=== PATIENT | female | born 2000 | race Caucasian/White ===

== ENCOUNTER 2020-02-13 15:03 | Inpatient (IN) | payer MEDICAID, SELFPAY ==
[2020-02-13] VITALS (7 sets, daily range): BP systolic 110–150; BP diastolic 61–97; PULSE 80–115; RESP 16–19; TEMP 36.2–36.9; O2SAT 99–100; BMI 37.7
--- NOTE | ~2020-02-13 | US_ITS ---
EXAMINATION: US right upper quadrant DATE: 02/19/2020 09:54 INDICATION: Abdominal pain. TECHNIQUE: Multiple grayscale and Doppler ultrasound images of the abdomen were obtained. COMPARISON: Ultrasound 02/13/2020, MRCP 02/14/2020 FINDINGS: The pancreas is obscured by bowel gas. The liver is normal without focal lesion. There is n ormal flow in main portal vein. The gallbladder is absent. The common duct is normal and measures 5 m m. IMPRESSION: 1. Normal right upper quadrant ultrasound status post cholecystectomy. Reviewed, dictated and finalized at location A.
--- NOTE | ~2020-02-13 | XR_ITS ---
EXAMINATION: XR ERCP DATE: 02/22/2020 10:36 INDICATION: Biliary stent placement TECHNIQUE: 15 intraoperative fluoroscopic images obtained during endoscopic retrograde cholangiopancr eatography (ERCP) are submitted for review. Total fluoroscopic time was 41.8 seconds. COMPARISON: 02/15/2020 FINDINGS: Fluoroscopic images demonstrate retrograde opacification of a normal caliber common bile du ct. Cholecystectomy clips are noted. A stent is seen in the distal bile duct in the final image. IMPRESSION: 1. Common bile duct stent insertion. Please refer to the ERCP procedure note for additional details. Reviewed, dictated and finalized at location A. IMPRESSION: 1. Common bile duct stent insertion. Please refer to the ERCP procedure note fo r additional details.
--- NOTE | ~2020-02-13 | MR_ITS ---
EXAMINATION: MR MRCP wo/w con/w 3D wo ind DATE: 02/14/2020 09:00 INDICATION: Jaundice TECHNIQUE: Magnetic resonance imaging (MRI) of the abdomen was performed without and with 20 mL Multi brian intravenous contrast. Sequences included coronal T2-weighted SS-FSE, coronal T2-weighted FS SS- FSE, coronal T2-weighted FS FIESTA, axial T2-weighted FS FIESTA, axial T2-weighted FIESTA, sagittal T 2-weighted SS-FSE, axial T1-weighted dual-echo FSPGR, axial T2-weighted SS-FSE, axial T1-weighted LAV A, axial T2-weighted STIR FSE. Thick-slab T2-weighted FRFSE-XL images were obtained for magnetic reso nance cholangiopancreatography (MRCP). Rotating maximum intensity projection 3-D reconstructions of t he volumetric data were created by the technologist. Postcontrast sequences included a time course of axial T1-weighted LAVA. COMPARISON: Ultrasound dated 02/13/2020 FINDINGS: ABDOMEN MRI: Heart size is normal. No pericardial or pleural effusion. Moderate diffuse intrahepatic biliary ducta l dilation. Liver is otherwise unremarkable. 11 mm gallstone in the dependent neck of the bladder whi ch is dilated to 5.2 cm. There is an additional 3 mm lower density gallstone at the nondependent fund us. No significant gallbladder wall thickening or surrounding pericholecystic inflammatory stranding to suggest acute cholecystitis. Spleen, pancreas, bilateral adrenal glands and kidneys are normal. Vi sualized portions of the bowels are unremarkable. No pathologically enlarged abdominal lymphadenopath y. The visualized vasculature and bones are unremarkable. ABDOMEN MRCP: The common bile duct is dilated to 12 mm in maximal diameter tapering to 5 mm the distal common bile duct where there is a meniscus sign with low signal intensity 5 x 6 mm likely obstructing stone at th e ampulla. Pancreas divisum with normal caliber main pancreatic duct extending to the minor papilla. IMPRESSION: 1. Cholelithiasis and obstructing 5 x 6 mm gallstone at the distal common bile duct with secondary in tra and extra hepatic biliary ductal dilation. 2. Incidental pancreas divisum. Pancreas is otherwise normal. Reviewed, dictated and finalized at location A. IMPRESSION: 1. Cholelithiasis and obstructing 5 x 6 mm gallstone at the distal common bile duct with secondary intra and extra hepatic biliary ductal dilation. 2. Incidental pancreas divisum. Pancreas is otherwise normal.
--- NOTE | ~2020-02-13 | US_ITS ---
EXAMINATION: US right upper quadrant EXAM DATE: 02/13/2020 16:13 INDICATION: Jaundice. TECHNIQUE: Multiple grayscale and Doppler images of the abdomen right upper quadrant were obtained (rain y a technologist who performed the scan) and subsequently reviewed. There is no prior study for luis boateng. FINDINGS: Bowel gas obscures the pancreas which is not seen. The liver has normal echogenicity and contour. T here are no focal liver lesions identified. Portal venous flow was seen in the hepatopedal, normal direction and has normal Doppler waveform. No right-sided hydronephrosis. Common bile duct measures 7-8 mm, which is mildly dilated. There is a gallstone in the dependent aspe ct of the gallbladder, the gallbladder neck. Gallbladder is moderately distended, wall is mildly thic kened at 3-4 mm. No pericholecystic fluid. Possible mild intrahepatic biliary duct dilation. Technol ogist performing exam reports patient did not demonstrate sonographic Mcintosh's sign. Please note yelitza t this sign is less reliable in patients who have received pain medication. No acute symptoms of abd ominal pain was provided for. IMPRESSION: Cholelithiasis, moderately distended gallbladder and mildly dilated common bile duct. Can 't exclude obstructing choledocholithiasis, although no sonographic Mcintosh's sign was demonstrated. MRCP can be considered if indicated clinically. Reviewed, dictated and finalized at location A. IMPRESSION: Cholelithiasis, moderately distended gallbladder and mildly dilated common bile duct. Can't exclude obstructing choledocholithiasis, although no s onographic Mcintosh's sign was demonstrated. MRCP can be considered if indicate d clinically.
--- NOTE | ~2020-02-13 | XR_ITS ---
XR ERCP 02/15/2020 12:04 ERCP TECHNIQUE: Fluoroscopy used during ERCP procedure performed on 02/15/2020 The amount of fluoroscopy ti me used during this procedure was 48 seconds of fluoroscopy with 4 fluoroscopic images images capture d. FINDINGS: Correlate with procedure note. Contrast is noted in the common duct which is partially vis ualized. IMPRESSION: Fluoroscopy used during ERCP procedure. Limited fluoroscopic images demonstrate contrast in the common duct. Please refer to procedural report for details. Reviewed, dictated and finalized at location A.
--- NOTE | ~2020-02-13 | CT_ITS ---
EXAMINATION: CT abdomen pelvis w con EXAM DATE: 02/20/2020 15:05 INDICATION: Diffuse abdominal pain. TECHNIQUE: Spiral CT of the abdomen and pelvis was performed following intravenous injection of 100 m L Omnipaque 350. Axial, coronal and sagittal images were reviewed. The dose-length product (DLP) fo r this examination was 1120.91 mGy-cm. The exposure was tailored according to patient size (auto mA exposure control), and iterative reconstruction (ASIR) was used as additional dose reduction techniqu e. Correlation is made to prior ultrasound. FINDINGS: There is edema within the right abdominal musculature, and there are tiny foci of free intr aperitoneal gas, likely postoperative from recent cholecystectomy. There is small amount of ascites, no contained pocket of fluid in the gallbladder fossa. If bile leak is of clinical concern, consider HIDA scan. The liver, spleen, adrenal glands and pancreas are unremarkable. Portal and splenic veins are patent. Kidneys enhance symmetrically. There is no hydronephrosis. The uterus is unremarkabl e. The bladder is unremarkable. There is no retroperitoneal or pelvic lymphadenopathy. The appendix is normal. The stomach and small bowel are unremarkable. There is expected amount of c olonic stool. No free intraperitoneal gas. The heart is normal in size. There are no pericardial or pleural effusions. There is basilar airspace disease with volume loss, elevation of the right he midiaphragm, mostly linear appearance, most likely atelectasis given the homogeneous enhancement. Con machine setter automatic incentive spirometry. There are no osteoblastic or osteolytic lesions identified. IMPRESSION: 1. Postoperative changes from recent cholecystectomy. 2. Small amount of ascites without fluid in the gallbladder fossa. If there is rising bilirubin, cli nical suspicion of bile leak, a HIDA scan would be appropriate. 3. Subsegmental right basilar, subsegmental left basilar atelectasis; consider incentive spirometry. Reviewed, dictated and finalized at location A. IMPRESSION: 1. Postoperative changes from recent cholecystectomy. 2. Small amount of ascites without fluid in the gallbladder fossa. If there is rising bilirubin, clinical suspicion of bile leak, a HIDA scan would be approp riate. 3. Subsegmental right basilar, subsegmental left basilar atelectasis; consider incentive spirometry.
--- NOTE | ~2020-02-13 | NM_ITS ---
EXAMINATION: NM hepatobiliary wo pharm DATE: 02/21/2020 10:29 INDICATION: Abdominal pain status post cholecystectomy. COMPARISON: CT abdomen and pelvis 02/20/2020 TECHNIQUE: 5 mCi Tc-99m mebrofenin (Choletec) was administered intravenously. Scintigraphic images o f the abdomen were obtained for one hour. FINDINGS: There is normal clearance of radiotracer from the blood pool. There is homogeneous tracer u ptake by the liver. There is pooling of activity at the undersurface of the liver, consistent with bi le leak. IMPRESSION: 1. Bile leak. Reviewed, dictated and finalized at location A. IMPRESSION: 1. Bile leak.
[2020-02-13 15:44] LABS: Basophils Absolute Auto 0.1 K/mm3 (0.0-0.1); Basophils Percent Auto 0.8 % (0.2-1.2); Eosinophils Absolute Auto 0.2 K/mm3 (0-0.3); Eosinophils Percent Auto 1.7 % (0-4.4); Hematocrit 47.2 % (37.0-47.0); Hemoglobin 15.1 g/dL (12.0-15.0); Immature Granulocyte Absolute 0.03 K/mm3 (0.00-0.031); Immature Granulocyte Percent A 0.3 % (0-0.5); Lymphocytes Absolute Auto 1.78 K/mm3 (0.9-3.2); Lymphocytes Percent Auto 20.1 % (18.3-44.2); Mean Corpuscular Hemoglobin 28.9 pg (26-34); Mean Corpuscular Volume 90.4 fl (80-100); Mean Platelet Volume 10.4 fl (7.4-10.4); Monocytes Percent Auto 11.2 % (2.6-8.5); Neutrophils Absolute Auto 5.8 K/mm3 (1.3-6.7); Neutrophils Percent Auto 65.9 % (45.5-73.1); Platelet Count Result 368 k/mm3 (150-375); Red Blood Count 5.22 M/mm3 (4.2-5.4); Red Cell Distribution Width 14.2 % (11.5-14.5); White Blood Count 8.8 K/mm3 (4.5-10.0)
[2020-02-13 15:54] LABS: Partial Thromboplastin Time 27.2 SECONDS (22.3-36.8); Prothrombin Time 12.5 Seconds (11.1-14.7)
[2020-02-13 15:56] LABS: Albumin Level 4.8 g/dL (3.5-5.1); Alkaline Phosphatase 254 U/L (38-126); Aspartate Amino Transferase 336 U/L (14-36); Bilirubin Direct 4.4 mg/dL (0-0.3); Bilirubin,Total 9.6 mg/dL (0.2-1.3); Blood Urea Nitrogen 9 mg/dL (7-17); Calcium 10.4 mg/dL (8.4-10.2); Carbon Dioxide 30 mmol/L (22-30); Chloride 99 mmol/L (98-107); Estimated Glomerular Filt Rate > 60; Glucose 131 mg/dL (65-105); Potassium 3.3 mmol/L (3.4-5.0); Sodium 139 mmol/L (137-145)
[2020-02-13 15:56] LABS: Ammonia < 9 umol/L (9-30)
[2020-02-13 16:02] LABS: Add Urine Microscopic? YES; Appearance Urine Clear (Clear); Bacteria Urine Trace /hpf; Bilirubin Urine 2+ (Negative); Blood Urine Negative (Negative); Color Urine Amber (Yellow); Glucose Urine UA Negative (Negative); Ketones Urine Negative (Negative); Leukocyte Esterase Ur Negative LEU/UL (Negative); Nitrate Urine Negative (Negative); Protein Urine Negative (Negative); RBC Urine 0-2 /hpf (0-2); Specific Grav Ur 1.011 (1.001-1.035); Squamous Epithelial Cell Urine Rare /hpf (Few); WBC Urine 0-3 /hpf
[2020-02-13 16:03] LABS: Alanine Aminotransferase 695 U/L (4-35); Monoscreen Negative (Negative)
[2020-02-13 16:04] LABS: Negative Monotest Control Negative (Negative); Positive Monotest Control Positive (Positive)
[2020-02-13 16:26] LABS: Hepatitis B Surface Antigen Negative (Negative)
[2020-02-13 16:35] LABS: HAV RESULT Negative (Negative); Hepatitis B Core IgM Result Negative (Negative)
[2020-02-13 16:44] LABS: Hepatitis C Virus Antibody Negative (Negative)
--- NOTE | 2020-02-13 16:54 | ED.GENADULT ---
HPI - General Adult General Chief complaint: Unspecified Stated complaint: yellow skin/vomiting Time Seen by Provider: 02/13/20 15:08 History of Present Illness HPI narrative: Patient is a 19-year-old female who presents the ER with jaundice. Patient reports for the last 3 weeks she has developed pain in her lower thoracic back. Is been associated with nausea. She cannot report any aggravating or alleviating factors. She is tried going to the chiropractor. Over last 3 days she start become more yellow and opted to come to the ER for further evaluation. Patient has no history of receiving any vaccinations. She does not drink alcohol. Denies IV drug use or possible exposure to hepatitis through sexual activity. No blood transfusions. She denies fever/chills/sweats. No family history of liver disease. Patient is obese. Denies any easy bruising or bleeding. Related Data Home Medications Medication Instructions Recorded Confirmed No Home Medications 02/13/20 02/13/20 Allergies Allergy/AdvReac Type Severity Reaction Status Date / Time No Known Allergies Allergy Verified 02/13/20 15:18 Review of Systems Review of Systems: All systems reviewed & are unremarkable except as noted in HPI and below Constitutional: Constitutional: Denies chills, Denies fever(s) and Denies weakness ENT: Denies nasal congestion and Denies sore throat Cardiovascular: Cardiovascular: Denies chest pain and Denies radiating jaw, neck or arm pain Respiratory: Respiratory: Denies cough, Denies dyspnea and Denies wheezing Gastrointestinal: Gastrointestinal: Denies abdominal pain, Denies constipation and Reports nausea Genitourinary: Genitourinary: Denies hematuria, Denies nocturia and Denies dysuria Musculoskeletal: Musculoskeletal: Reports back pain, Denies arthralgias and Denies joint swelling Integumentary/Breasts: Skin/Breast: Reports jaundice Hematologic/Lymphatic: Hematologic/Lymphatic: Denies easy bleeding and Denies easy bruising PMFSH Past Medical History Medical History (Updated 02/13/20 @ 18:04 by Alcides Koenig MD) No significant past medical history Surgical History Surgical History (Updated 02/13/20 @ 16:57 by Alcides Koenig MD) No significant past surgical history Social History Social History (Updated 02/13/20 @ 16:57 by Alcides Koenig MD) Smoking status: Never smoker Alcohol intake: never Substance use: never Gender identity (if verbalized by the patient): Female Exam Narrative: Exam Narrative: GENERAL: Unwell appearing, obese, and in no acute distress. HEAD: Normocephalic, atraumatic. EYES: PERRL and EOMI. scleral icterus noted. ENT: Mucous membranes moist. CHEST: Clear to auscultation. No respiratory distress. HEART: Regular rate and rhythm. Normal peripheral pulses. ABDOMEN: Soft, nontender, nondistended, normal active bowel sounds. Back: No midline tenderness of thoracic or lumbar spine. EXTREMITIES: Normal range of motion. No edema. SKIN: Warm, dry, jaundice, no bruising or petechiae.. NEURO: No focal deficits. Alert and oriented x3. Course Course Emergency Course: Patient informed of results. Will admit to hospitalist service for MRCP. Vital Signs Vital signs: Vital Signs Temperature 98.2 F 02/13/20 15:09 Pulse Rate 104 H 02/13/20 15:09 Respiratory Rate 18 02/13/20 15:09 Blood Pressure 150/97 H 02/13/20 15:09 Pulse Oximetry 100 02/13/20 15:09 Temperature 97.1 F L 02/13/20 17:56 Pulse Rate 100 02/13/20 17:56 Respiratory Rate 16 02/13/20 17:56 Blood Pressure 128/83 02/13/20 17:56 Pulse Oximetry 100 02/13/20 17:56 Medical Decision Making Vital Signs Vital Signs: Vital Signs Temperature 98.2 F 02/13/20 15:09 Pulse Rate 104 H 02/13/20 15:09 Respiratory Rate 18 02/13/20 15:09 Blood Pressure 150/97 H 02/13/20 15:09 Pulse Oximetry 100 02/13/20 15:09 Temperature 97.1 F L 02/13/20 17:56 Pulse Rate 100 05/0
--- NOTE | 2020-02-13 18:53 | PC.NURSE ---
This patient, Cleopatra Castaneda, was admitted to 3 [facility] Surg Room 302-01. Patient/family oriented to hospital policies and general routines including ID bracelet, bed and alarms, visiting hours, pain management, procedures, bathroom and other care routines, personal items, smoking policy, room service/diet, and visiting hours. Valuables list has been completed. Information on how to activate the Rapid Response Team has been discussed. Patient/Family are encouraged to report perceived risks to care and to ask questions if they do not understand what they are told or what they should do.
[2020-02-13] MEDS: SODIUM CHLORIDE 0.9% IV 1,000 ML 125 ML IV CONT (19:02)
[2020-02-14] MEDS: SODIUM CHLORIDE 0.9% IV 1,000 ML 125 ML IV CONT (03:08)
--- NOTE | 2020-02-14 05:30 | PM.IMHP ---
H&P: HPI History of Present Illness Chief complaint: Jaundice Narrative: Date and time of patient contact: 02/14/2020 at 5:30 a.m. Cleopatra Castaneda is a 19 year old female with a past medical history of anemia and obesity who presented to the ER with jaundice. The patient's mother noticed the patient was jaundice about 3 days ago. She gave the patient a hemolex multi vitamin and vitamin-D and she thought the patient's jaundice had improved. The jaundice was preceded by about 3 weeks of mid thoracic back pain and occasional right upper quadrant pain that was at times severe in intensity (10/10). Pain was intermittent and frequency. Pain was associated by the onset of nausea and vomiting as well as decreased oral intake. She did not notice any eliciting or relieving factors. She did try to go to the chiropractor without improvement in her symptoms. She has had a decreased number bowel movements but associates this with decreased oral intake. Her bowel movements have been in room dining server in color recently. Her urine has been darker in color. She denies any dysuria or changes in his in urinary frequency or urgency. She does not drink alcohol, use illicit sub and has not had any exposures to hepatitis. She denies any fevers or chills. She is not sexually active and has not had any travel. She has not received any vaccines. She has been taking some ibuprofen for the back pain without relief in her symptoms. She thought that the ibuprofen may have caused the jaundice. She does not a family history of liver disease. She has not had any easy bruising or bleeding. Review of Systems Review of Systems: Narrative: 12 systems were reviewed with pertinent positives and negatives per HPI. Except as documented in the HPI, all other systems were reviewed and are negative. [facility] Past Medical History Medical History Anemia Obesity Surgical History Surgical History No significant past surgical history Family History Family History Mother Diabetes mellitus Father Hypertension Shortness of breath Social History Social History Social History: Code code status: Full code Smoking status: Never smoker Alcohol intake: never Substance use: never Substance use type: does not use Living arrangements: with family Additional living arrangements comments: She is single. she lives at home with her mom and dad. She was home schooled. Occupation/Education: unemployed Additional occupation/education comments: She is unemployed and does not go to school. Gender identity (if verbalized by the patient): Female Spiritual care concerns: No Agree to blood products: Yes Meds Home Medications and Allergies Home Medications Medication Instructions Recorded Confirmed Type No Home Medications 02/13/20 02/13/20 History Allergies Allergy/AdvReac Type Severity Reaction Status Date / Time No Known Allergies Allergy Verified 02/13/20 15:18 Vital Signs Vital Signs - 24 hr 02/13/20 15:09 02/13/20 15:10 02/13/20 16:02 Temperature 98.2 F 97.9 F Pulse Rate 104 H 81 Respiratory Rate 18 19 18 Blood Pressure 150/97 H 127/68 Pulse Oximetry 100 99 99 02/13/20 17:56 02/13/20 18:40 02/13/20 19:40 Temperature 97.1 F L 97.8 F 98.2 F Pulse Rate 100 115 H 80 Respiratory Rate 16 16 16 Blood Pressure 128/83 131/73 110/72 Pulse Oximetry 100 100 100 02/13/20 21:26 Temperature 98.4 F Pulse Rate 86 Respiratory Rate 16 Blood Pressure 125/61 Pulse Oximetry 100 Exam Narrative: Exam Narrative: PHYSICAL EXAM: WEIGHT 106 kg BMI 37.7 General: Obese, no acute distress, appears stated age HEENT: Mucous membranes are moist, marked scleral icterus, head is normocephalic atraumatic Neck: No JVD, lym
[2020-02-14 06:00] VITALS: BP 128/65; PULSE 76; RESP 20; TEMP 36.3; O2SAT 100
[2020-02-14 06:24] LABS: Hematocrit 39.9 % (37.0-47.0); Hemoglobin 13.2 g/dL (12.0-15.0); Mean Corpuscular HGB Conc 33.1 g/dl (32-36); Mean Corpuscular Hemoglobin 29.3 pg (26-34); Mean Corpuscular Volume 88.7 fl (80-100); Mean Platelet Volume 10.3 fl (7.4-10.4); Platelet Count Result 279 k/mm3 (150-375); Red Cell Distribution Width 14.5 % (11.5-14.5); White Blood Count 7.8 K/mm3 (4.5-10.0)
[2020-02-14 06:44] LABS: Alanine Aminotransferase 568 U/L (4-35); Albumin Level 3.9 g/dL (3.5-5.1); Alkaline Phosphatase 215 U/L (38-126); Aspartate Amino Transferase 227 U/L (14-36); Bilirubin,Total 9.4 mg/dL (0.2-1.3); Blood Urea Nitrogen 7 mg/dL (7-17); Calcium 9.3 mg/dL (8.4-10.2); Carbon Dioxide 27 mmol/L (22-30); Chloride 106 mmol/L (98-107); Estimated CRCL calculation 135 ml/min; Estimated Glomerular Filt Rate > 60; Glucose 83 mg/dL (65-105); Potassium 3.6 mmol/L (3.4-5.0); Sodium 141 mmol/L (137-145)
[2020-02-14 07:37] LABS: Lipase 32 U/L (23-300)
--- NOTE | 2020-02-14 08:02 | PC.NURSE ---
Patient off floor for MRCP.
--- NOTE | 2020-02-14 08:22 | WPDGICN ---
Assessment and Plan Assessment and plan (1) Obesity: Code(s): E66.9 - Obesity, unspecified Status: Acute (2) Jaundice: Code(s): R17 - Unspecified jaundice Status: Acute Assessment and Plan: Jaundice noted over the last 3 days. Bilirubin in the urine suggestive of obstructive pattern. We will obtain MRCP to exclude common bile duct obstruction. Ultrasound does confirm gallstones raising this is a likely consideration. ERCP may be required tomorrow pending results of MRCP today. (3) Elevated LFTs: Code(s): R79.89 - Other specified abnormal findings of blood chemistry Status: Acute Assessment and Plan: Elevated LFTs with minimal abdominal pain suggestive of the possibility of hepatitis. Laboratory testing to exclude viral hepatitis and other etiologies will be implemented. We will continue monitor LFTs. (4) Cholelithiasis: Code(s): K80.20 - Calculus of gallbladder without cholecystitis without obstruction Status: Acute Assessment and Plan: Gallstones identified on initial ultrasound. Plan is for MRCP to exclude common duct stones as well. GI Consult Note Consult date/time: 02/14/20 08:22 HPI: Cleopatra Castaneda is a 19 year old female seen in evaluation at the request of the hospitalist service. Patient reports back pain is been present for about 1 month located in the midback she initially saw a chiropractor for this. Over last 3-4 days began to notice yellow jaundice in her eyes. Because of increasing pain she presented the emergency room last evening. Lab work revealed elevated LFTs and bilirubin. She has on questioning noticed darkening to her urine and lightening of her stools. She denies any overt abdominal pain but has had nausea and emesis over the last several days as well. She denies any fever. Has had no travel history no exposure to anyone that she knows has had hepatitis. She is on no medications. She has not started any new medications. Review of Systems Review of Systems: All systems reviewed & are unremarkable except as noted in HPI and below PMFSH Past Medical History Medical History Anemia Obesity Surgical History Surgical History No significant past surgical history Family History Family History Mother Diabetes mellitus Father Hypertension Shortness of breath Social History Social History Social History: Code code status: Full code Smoking status: Never smoker Alcohol intake: never Substance use: never Substance use type: does not use Living arrangements: with family Additional living arrangements comments: She is single. she lives at home with her mom and dad. She was home schooled. Occupation/Education: unemployed Additional occupation/education comments: She is unemployed and does not go to school. Gender identity (if verbalized by the patient): Female Spiritual care concerns: No Agree to blood products: Yes Meds Home Medications and Allergies Home Medications Medication Instructions Recorded Confirmed Type No Home Medications 02/13/20 02/13/20 History Allergies Allergy/AdvReac Type Severity Reaction Status Date / Time No Known Allergies Allergy Verified 02/13/20 15:18 Vital Signs Vital Signs - 24 hr 02/13/20 15:09 02/13/20 15:10 02/13/20 16:02 Temperature 36.8 C 36.6 C Pulse Rate 104 H 81 Respiratory Rate 18 19 18 Blood Pressure 150/97 H 127/68 Pulse Oximetry 100 99 99 02/13/20 17:56 02/13/20 18:40 02/13/20 19:40 Temperature 36.2 C L 36.6 C 36.8 C Pulse Rate 100 115 H 80 Respiratory Rate 16 16 16 Blood Pressure 128/83 131/73 110/72 Pulse Oximetry 100 100 100 02/13/20 21:26 02/14/20 06:00 Temperature 36.9 C 36.3 C L Pulse
--- NOTE | 2020-02-14 09:05 | PC.NURSE ---
Patient returned from MRCP.
--- NOTE | 2020-02-14 09:32 | PC.NURSE ---
Johana Deras here to see patient.
[2020-02-14 11:03] VITALS: BP 142/76; PULSE 90; RESP 20; TEMP 37.2; O2SAT 100
[2020-02-14 11:48] LABS: Lipase 29 U/L (23-300)
--- NOTE | 2020-02-14 12:11 | PM.IMPN ---
Progress Note: A&P Assessment and Plan (1) Choledocholithiasis with obstruction: Code(s): K80.51 - Calculus of bile duct without cholangitis or cholecystitis with obstruction Status: Acute Assessment and Plan: The patient presented with c/o jaundice for 3 days, nausea, intermittent RUQ pain, vomiting, and decreased PO intake. She also reported acholic stools and dark urine. LFTs are elevated. Total bilirubin is 9.4 and direct bilirubin is 4.4. UA revealed bilirubin and urobilinogen. MRCP revealed cholelithiasis and obstructing 5x6mm gallstone at the distal common bile duct which is dilated to 12mm and tapers to 5mm with secondary intra and extra hepatic biliary ductal dilation. GI is on board. There was pancreas divisum present with no other pancreatic abnormalities. Lipase is WNL at 29. The patient is afebrile without leukocytosis. Vitals are stable. Plan for ERCP tomorrow by Dr. Lares NPO at midnight (2) Obstructive jaundice: Code(s): K83.1 - Obstruction of bile duct Status: Acute Assessment and Plan: As above. (3) Hepatitis: Code(s): K75.9 - Inflammatory liver disease, unspecified Status: Acute Assessment and Plan: AST is 227, ALT is 568, and ALP is 215. I suspect that this is due to choledocholithiasis. Hepatitis panel was negative. Monoscreen is negative. Will trend (4) Cholelithiasis: Qualifiers: Biliary obstruction: with biliary obstruction Cholecystitis presence: without cholecystitis Cholelithiasis location: gallbladder and bile duct Qualified Code(s): K80.71 - Calculus of gallbladder and bile duct without cholecystitis with obstruction Code(s): K80.20 - Calculus of gallbladder without cholecystitis without obstruction Status: Acute Assessment and Plan: MRCP revealed 11mm gallstone in the dependent neck of the gallbladder and a 3mm gallstone at the nondependent funds. There is no gallbladder wall thickening or surrounding pericholecystic inflammatory stranding to suggest acute cholecystitis. Will place consult to general surgery Subjective Date/time seen: 02/14/20 12:11 Interval history: Mrs. Castaneda is seen and examined at bedside. She reports that she has no pain at this time. She reports mild lightheadedness because she has not had anything to eat as she was NPO for MRCP. She denies nausea and vomiting. She denies headaches or dizziness. She denies chest pain, SOB, and cough. She denies back pain. She denies palpitations. Review of Systems Review of Systems: All systems reviewed & are unremarkable except as noted in HPI and below Exam Narrative: Exam Narrative: General: Obese, well-developed female who is lying supine in the semi-recumbent position in bed and in no acute distress. HEENT: Normocephalic and atraumatic. Scleral icterus present. Conjunctivae and lids normal. PERRL. EOMI. Mucous membranes dry. Posterior pharynx without erythema or exudate. Neck: Supple without lymphadenopathy or masses. Cardiac: Regular rate and rhythm. S1 and S2 normal. No murmur appreciated. Lungs:Effort normal. Lungs are clear to auscultation bilaterally. Abdomen:Bowel sounds normoactive. Abdomen is soft, non-distended, and non-tender. Extremities: No lower extremity edema. Palpable DP and PT bilaterally. Neurological: Alert and oriented x3. Exam is non-focal. Speech is clear. Skin: Warm and dry. Skin is jaundiced. Psychiatric: Judgment and insight intact. Mood is normal and affect is flat. Objective Data Vital Signs Vital Signs: Vital Signs - 24 hr 02/13/20 15:09 02/13/20 15:10 02/13/20 16:02 Temperature 98.2 F 97.9 F Pulse Rate 104 H 81 Respiratory Rate 18 19 18 Blood Pressure 150/97 H 127/68 Pulse Oximetry 100 99 99 02/13/20 17:56 02/13/20 18:40 02/13/20 19:40 Temperature 97.1 F L 97.8 F 98.2 F Pulse Rate 100 115 H 80 Respiratory Rate 16 16 16 Blood Pressure 128/83 131/73 110/72 Pulse Oximetry
[2020-02-14 14:00] VITALS: BP 109/65; PULSE 74; RESP 16; TEMP 36.8; O2SAT 99
--- NOTE | 2020-02-14 15:24 | PM.CNGS ---
Assessment and Plan Assessment and plan (1) Choledocholithiasis with obstruction: Code(s): K80.51 - Calculus of bile duct without cholangitis or cholecystitis with obstruction Status: Acute Assessment and Plan: Ultrasound and MRCP reviewed and discussed in detail with the patient. Imaging showed evidence of obstructing choledocholithiasis with cholelithiasis and some gallbladder distention but no other signs of acute cholecystitis. GI has been consulted and their recommendations are noted. It appears they are planning an ERCP tomorrow. I discussed the pathophysiology of gallbladder disease and complications of cholelithiasis with the patient. After discussing the patient's case with Dr. Perez, we would recommend proceeding with a laparoscopic cholecystectomy, possible open. Description of the procedure, risks, benefits, indications, expected outcomes, and recovery were discussed with the patient in detail. All questions were answered. The patient agrees to proceed with surgery. Timing of surgery will be determined following how the patient improves over the next few days. If she is able to be discharged by the weekend, she could be set up for outpatient surgery hopefully in the next week or so. I discussed with the patient that she will need to follow a low fat diet prior to surgery and 2 weeks post-operatively. I gave her an instructions sheet regarding cholecystectomy and low fat diet instructions. Thank you for allowing me to see the patient in consultation and we will continue to follow along with you. (2) Cholelithiasis: Qualifiers: Cholelithiasis location: gallbladder and bile duct Cholecystitis presence: without cholecystitis Biliary obstruction: with biliary obstruction Qualified Code(s): K80.71 - Calculus of gallbladder and bile duct without cholecystitis with obstruction Code(s): K80.20 - Calculus of gallbladder without cholecystitis without obstruction Status: Acute (3) Elevated LFTs: Code(s): R79.89 - Other specified abnormal findings of blood chemistry Status: Acute Assessment and Plan: GI following. Hepatitis panel negative. Likely related to the above problem. (4) Obesity: Code(s): E66.9 - Obesity, unspecified Status: Acute Additional Plan I discussed the patient's case and formulated the plan of care with Dr. Perez. History of Present Illness Consult details Consult date: 02/14/20 Reason for consult: other (Cholelithiasis with evidence of choledocholithiasis) Requesting physician: Chelsey Barnes PA-C Narrative: This is a 19-year-old obese female that presented to the emergency department with complaints of jaundice for about 3 days. The patient reports that she first noticed intermittent mid back pain about 1 month ago. She had not noticed any aggravating factors. She went to a Chiropractor for the back pain but states the pain continued to return. She does report that over the past few weeks she also started noticing some epigastric abdominal pain that would radiate to the right upper quadrant. In the past week, she reports a decrease in oral intake due to associated nausea and vomiting that would accompany the abdominal pain, and states this did occur anytime that she would try to eat or drink anything. Her mother noticed she was jaundiced about 3 days ago. Due to the persistent symptoms and now jaundiced appearance, she decided to present to the emergency department yesterday for further evaluation. Right upper quadrant abdominal ultrasound showed evidence of cholelithiasis and common bile duct dilatation with moderate gallbladder distention. Labs revealed a total bilirubin of 9.6, direct bilirubin 4.4, AST 336, ALT 695, alk phos 254, and a normal white blood cell count. Urinalysis showed 2+ bilirubin and 2.0 urobilinogen. The patient was admitted to the Hospitalist service in this setting and GI was consulted. MRCP was ordered and showed cholelithiasis a
[2020-02-14] MEDS: SODIUM CHLORIDE 0.9% IV 1,000 ML 100 ML IV CONT (15:50)
[2020-02-14 21:49] VITALS: BP 142/84; PULSE 72; RESP 18; TEMP 36.3; O2SAT 99
[2020-02-15] VITALS (8 sets, daily range): BP systolic 110–144; BP diastolic 58–80; PULSE 60–102; RESP 14–20; TEMP 36.4–36.8; O2SAT 97–100
[2020-02-15] MEDS: SODIUM CHLORIDE 0.9% IV 1,000 ML 100 ML IV CONT (03:27)
[2020-02-15 05:36] LABS: Hematocrit 39.4 % (37.0-47.0); Hemoglobin 12.9 g/dL (12.0-15.0); Mean Corpuscular HGB Conc 32.7 g/dl (32-36); Mean Corpuscular Hemoglobin 29.7 pg (26-34); Mean Corpuscular Volume 90.6 fl (80-100); Mean Platelet Volume 10.3 fl (7.4-10.4); Platelet Count Result 263 k/mm3 (150-375); Red Blood Count 4.35 M/mm3 (4.2-5.4); Red Cell Distribution Width 14.7 % (11.5-14.5); White Blood Count 7.7 K/mm3 (4.5-10.0)
[2020-02-15 05:53] LABS: Alanine Aminotransferase 464 U/L (4-35); Albumin Level 3.9 g/dL (3.5-5.1); Alkaline Phosphatase 210 U/L (38-126); Aspartate Amino Transferase 181 U/L (14-36); Bilirubin,Total 10.2 mg/dL (0.2-1.3); Blood Urea Nitrogen 5 mg/dL (7-17); Carbon Dioxide 26 mmol/L (22-30); Chloride 106 mmol/L (98-107); Estimated CRCL calculation 135 ml/min; Estimated Glomerular Filt Rate > 60; Glucose 79 mg/dL (65-105); Potassium 4.1 mmol/L (3.4-5.0); Sodium 138 mmol/L (137-145)
--- NOTE | 2020-02-15 11:02 | PC.NURSE ---
Patient to GI lab.
--- NOTE | 2020-02-15 11:02 | WPDANESEPPF ---
Anes - Initial Pre Proc Eval Procedure: Operation Date: 02/15/20 12:00 Proposed Procedures p Endoscopic Retro Cholangiopancreatogram - Horacio Lares MD Date/Time: 02/15/20 11:02 Surgeon: Chelsey Barnes PA-C Pre Op Diagnosis: Jaundice Patient Data Age: 19 Gender: F Height: 5 ft 6 in Weight: 106 kg Last Vital Signs Temp 36.4 C 02/15/20 06:00 Pulse 60 02/15/20 06:00 Resp 16 02/15/20 06:00 BP 110/58 L 02/15/20 06:00 Pulse Ox 100 02/15/20 06:00 Allergies Allergy/AdvReac Type Severity Reaction Status Date / Time No Known Allergies Allergy Verified 02/13/20 15:18 Home Medications Medication Instructions Recorded Confirmed Type No Home Medications 02/13/20 02/13/20 History Laboratory Tests 02/14/20 02/15/20 02/15/20 11:18 05:09 05:09 WBC 7.7 K/mm3 K/mm3 (4.5-10.0) RBC 4.35 M/mm3 M/mm3 (4.2-5.4) Hgb 12.9 g/dL g/dL (12.0-15.0) Hct 39.4 % % (37.0-47.0) MCV 90.6 fl fl (80-100) MCH 29.7 pg pg (26-34) MCHC 32.7 g/dl g/dl (32-36) RDW 14.7 % H % (11.5-14.5) Plt Count 263 k/mm3 k/mm3 (150-375) MPV 10.3 fl fl (7.4-10.4) Sodium 138 mmol/L mmol/L (137-145) Potassium 4.1 mmol/L mmol/L (3.4-5.0) Chloride 106 mmol/L mmol/L (98-107) Carbon Dioxide 26 mmol/L mmol/L (22-30) BUN 5 mg/dL L mg/dL (7-17) Creatinine 0.70 mg/dL mg/dL (0.7-1.0) Estim Creat Clear Calc 135 ml/min ml/min Estimated GFR > 60 (59 - ) Glucose 79 mg/dL mg/dL (65-105) Calcium 9.0 mg/dL mg/dL (8.4-10.2) Total Bilirubin 10.2 mg/dL H mg/dL (0.2-1.3) AST 181 U/L H U/L (14-36) ALT 464 U/L H U/L (4-35) Alkaline Phosphatase 210 U/L H U/L (38-126) Total Protein 7.0 g/dL g/dL (6.3-8.2) Albumin 3.9 g/dL g/dL (3.5-5.1) Lipase 29 U/L U/L (23-300) Patient hx anesthesia problems: none Family hx anesthesia problems: none PMFSH Past Medical History Medical History Anemia Obesity Surgical History Surgical History No significant past surgical history Family History Family History Mother Diabetes mellitus Father Hypertension Shortness of breath Social History Social History Social History: Code code status: Full code Smoking status: Never smoker Alcohol intake: never Substance use: never Substance use type: does not use Living arrangements: with family Additional living arrangements comments: She is single. She lives at home with her mom and dad. She was home schooled. Occupation/Education: unemployed Additional occupation/education comments: She is unemployed and does not go to school. Gender identity (if verbalized by the patient): Female Spiritual care concerns: No Agree to blood products: Yes Anes - Eval Final PreProcedure Day of Procedure 02/15/20 11:02 Patient weight: obese Heart: regular rate and rhythm Lungs: clear to auscultation Airway: Mallampati scale class II Neurological: alert and oriented Last oral intake: >/= 8 hours ASA classification: III Emergent: no Anesthetic plan: proceed Anesthesia type and monitoring: general ETT and standard monitoring Informed Consent: The patient's anesthetic plan and its attendant risks and benefits were discussed with the patient/family/POA. Questions were solicited and answers provided to the satisfaction of the patient/family/POA.
[2020-02-15] MEDS: LACTATED RINGERS 1,000 ML 150 ML IV CONT (11:04)
--- NOTE | 2020-02-15 11:35 | PM.PNGS ---
Progress Note: A&P Assessment and Plan (1) Choledocholithiasis with obstruction: Code(s): K80.51 - Calculus of bile duct without cholangitis or cholecystitis with obstruction Status: Acute Assessment and Plan: ERCP today, await results, trend labs, will need interval cholecystectomy (2) Obstructive jaundice: Code(s): K83.1 - Obstruction of bile duct Status: Acute Assessment and Plan: ERCP today and trend labs (3) Obesity: Code(s): E66.9 - Obesity, unspecified Status: Acute Additional Plan Subjective Subjective Date/Time Seen: 02/15/20 11:35 Pt seen in endoscopy. Pt is somewhat sedated but answering questions appropriately. Pt currently without complaints. Review of Systems Constitutional: Constitutional: Denies chills and Reports fatigue Cardiovascular: Cardiovascular: Denies chest pain and Denies palpitations Respiratory: Respiratory: Denies dyspnea Gastrointestinal: Gastrointestinal: Reports abdominal pain, Reports bloating, Denies constipation, Denies diarrhea, Reports nausea and Denies vomiting Exam Const: General: no acute distress Resp: Auscultation: clear to auscultation bilaterally Cardio: Rate: regular rate Rhythm: regular rhythm GI: Other: S, sl dist, mild TTP epigastrium/RUQ Skin: Other: +jaundice Objective Data Vital Signs Vital Signs: Vital Signs - 24 hr 02/14/20 14:00 02/14/20 21:49 02/15/20 06:00 Temperature 36.8 C 36.3 C L 36.4 C Pulse Rate 74 72 60 Respiratory Rate 16 18 16 Blood Pressure 109/65 142/84 H 110/58 L Pulse Oximetry 99 99 100 Intake/Output Intake/Output: Intake & Output 02/12/20 02/13/20 02/14/20 02/15/20 23:59 23:59 23:59 23:59 Intake Total 2977 1426 Output Total 1500 400 Balance 1477 1026 Meds/Results Medications: Active Medications Generic Name Dose Route Start Last Admin Trade Name Freq PRN Reason Stop Dose Admin Sodium Chloride 1,000 mls @ 100 mls/hr 02/13/20 17:35 02/15/20 05:43 Normal Saline Iv IV CONT 100 mls/hr .Q10H MATTHEW Infusion Lactated Ringer's 1,000 mls @ 150 mls/hr 02/15/20 10:55 02/15/20 11:04 Lr - Lactated Ringers Iv IV CONT 150 mls/hr .Q6H40M MATTHEW Administration Morphine Sulfate 2 mg 02/13/20 20:55 Morphine Sulfate Inj IV PUSH Q4H PRN Pain Rated 7-10 Ondansetron HCl 4 mg 02/13/20 17:32 Zofran Inj IV PUSH Q4H PRN Nausea Radiology Results: ITS Impressions Upper Quadrant Ultrasound 02/13/20 16:18 IMPRESSION: Cholelithiasis, moderately distended gallbladder and mildly dilated common bile duct. Can't exclude obstructing choledocholithiasis, although no sonographic Mcintosh's sign was demonstrated. MRCP can be considered if indicated clinically. MRCP 02/14/20 09:10 IMPRESSION: 1. Cholelithiasis and obstructing 5 x 6 mm gallstone at the distal common bile duct with secondary intra and extra hepatic biliary ductal dilation. 2. Incidental pancreas divisum. Pancreas is otherwise normal. Labs Labs: Laboratory Results - last 24 hr 02/14/20 02/15/20 02/15/20 11:18 05:09 05:09 WBC 7.7 RBC 4.35 Hgb 12.9 Hct 39.4 MCV 90.6 MCH 29.7 MCHC 32.7 RDW 14.7 H Plt Count 263 MPV 10.3 Sodium 138 Potassium 4.1 Chloride 106 Carbon Dioxide 26 BUN 5 L Creatinine 0.70 Estim Creat Clear Calc 135 Estimated GFR > 60 Glucose 79 Calcium 9.0 Total Bilirubin 10.2 H AST 181 H ALT 464 H Alkaline Phosphatase 210 H Total Protein 7.0 Albumin 3.9 Lipase 29 Quality VTE Prophylaxis VTE prophylaxis: mechanical ordered (SCDs)
--- NOTE | 2020-02-15 13:17 | PC.NURSE ---
Patient returned from GI lab.
--- NOTE | 2020-02-15 15:03 | PM.IMPN ---
Progress Note: A&P Assessment and Plan (1) Choledocholithiasis with obstruction: Code(s): K80.51 - Calculus of bile duct without cholangitis or cholecystitis with obstruction Status: Acute Assessment and Plan: The patient presented with c/o jaundice for 3 days, nausea, intermittent RUQ pain, vomiting, and decreased PO intake. She also reported acholic stools and dark urine. LFTs and bilirubin were elevated. UA revealed bilirubin and urobilinogen. MRCP revealed cholelithiasis and obstructing 5x6mm gallstone at the distal common bile duct which is dilated to 12mm and tapers to 5mm with secondary intra and extra hepatic biliary ductal dilation. GI is on board and the patient underwent ERCP today by Dr. Lares with sphincterotomy and one CBD stone was extracted with balloon. There was pancreas divisum present with no other pancreatic abnormalities. Lipase is WNL at 29. The patient is afebrile without leukocytosis. Vitals are stable. Advance diet Continue to monitor closely for complications General surgery is on board for cholecystectomy (2) Obstructive jaundice: Code(s): K83.1 - Obstruction of bile duct Status: Acute Assessment and Plan: As above. (3) Hepatitis: Code(s): K75.9 - Inflammatory liver disease, unspecified Status: Acute Assessment and Plan: LFTs are trending down. AST is 181, ALT is 464, and alkaline phosphatase is 210. I suspect that this is due to choledocholithiasis. Hepatitis panel was negative. Monoscreen is negative. Will trend LFTs and continue to monitor (4) Cholelithiasis: Qualifiers: Cholelithiasis location: gallbladder and bile duct Cholecystitis presence: without cholecystitis Biliary obstruction: with biliary obstruction Qualified Code(s): K80.71 - Calculus of gallbladder and bile duct without cholecystitis with obstruction Code(s): K80.20 - Calculus of gallbladder without cholecystitis without obstruction Status: Acute Assessment and Plan: MRCP revealed 11mm gallstone in the dependent neck of the gallbladder and a 3mm gallstone at the nondependent funds. There is no gallbladder wall thickening or surrounding pericholecystic inflammatory stranding to suggest acute cholecystitis. General surgery is on board and has advised cholecystectomy which could be performed inpatient versus outpatient depending on her recovery following ERCP Subjective Date/time seen: 02/15/20 15:03 Interval history: Mrs. Castaneda is seen and examined at bedside following ERCP due to choledocholithiasis. She reports mild throat discomfort/irritation due to the anesthetic used for endoscopy. She denies shortness of breath, cough, and chest pain. She denies nausea and vomiting. She is hungry and eager to eat. She denies headaches, lightheadedness, and dizziness. She has no other complaints today. Review of Systems Review of Systems: All systems reviewed & are unremarkable except as noted in HPI and below Exam Narrative: Exam Narrative: General: Obese and well-developed 19-year-old female lying in bed in no acute distress. HEENT: Normocephalic and atraumatic. Scleral icterus present. Conjunctivae and lids normal. EOMI. Mucous membranes moist. No posterior pharyngeal exudate or erythema. Neck: Supple without lymphadenopathy or masses. Cardiac: Regular rate and rhythm. S1 and S2 normal. Lungs:Effort normal and respirations non-labored. Lungs are clear to auscultation bilaterally. Abdomen: Obese. Bowel sounds are normoactive. Abdomen is soft, non-distended, and mildly tender in the RUQ. Extremities: No lower extremity edema. Palpable DP and PT bilaterally. Neurological: Alert and oriented x3. Exam is non-focal. Speech is clear. Skin: Warm and dry. Skin is jaundiced. Psychiatric: Judgment and insight intact. Mood is normal and affect is flat. Objective Data Vital Signs Vital Signs: Vital Signs - 24 hr 02/14/20 21:4
[2020-02-16 06:00] VITALS: BP 102/50; PULSE 67; RESP 16; TEMP 36.4; O2SAT 99
[2020-02-16 06:21] LABS: Hematocrit 38.2 % (37.0-47.0); Hemoglobin 12.4 g/dL (12.0-15.0); Mean Corpuscular HGB Conc 32.5 g/dl (32-36); Mean Corpuscular Hemoglobin 28.8 pg (26-34); Mean Corpuscular Volume 88.6 fl (80-100); Mean Platelet Volume 10.4 fl (7.4-10.4); Platelet Count Result 289 k/mm3 (150-375); Red Blood Count 4.31 M/mm3 (4.2-5.4); Red Cell Distribution Width 14.7 % (11.5-14.5); White Blood Count 12.6 K/mm3 (4.5-10.0)
[2020-02-16 06:37] LABS: Alanine Aminotransferase 414 U/L (4-35); Albumin Level 4.1 g/dL (3.5-5.1); Alkaline Phosphatase 202 U/L (38-126); Aspartate Amino Transferase 146 U/L (14-36); Bilirubin,Total 4.7 mg/dL (0.2-1.3); Blood Urea Nitrogen 13 mg/dL (7-17); Calcium 9.4 mg/dL (8.4-10.2); Carbon Dioxide 29 mmol/L (22-30); Chloride 101 mmol/L (98-107); Estimated CRCL calculation 155 ml/min; Estimated Glomerular Filt Rate > 60; Glucose 103 mg/dL (65-105); Lipase 26 U/L (23-300); Potassium 4.1 mmol/L (3.4-5.0); Sodium 136 mmol/L (137-145)
--- NOTE | 2020-02-16 09:09 | PM.IMPN ---
Progress Note: A&P Assessment and Plan (1) Choledocholithiasis with obstruction: Code(s): K80.51 - Calculus of bile duct without cholangitis or cholecystitis with obstruction Status: Acute Assessment and Plan: The patient presented with c/o jaundice for 3 days, nausea, intermittent RUQ pain, vomiting, and decreased PO intake. She also reported acholic stools and dark urine. LFTs and bilirubin were elevated. UA revealed bilirubin and urobilinogen. MRCP revealed cholelithiasis and obstructing 5x6mm gallstone at the distal common bile duct which is dilated to 12mm and tapers to 5mm with secondary intra and extra hepatic biliary ductal dilation. GI is on board and the patient underwent ERCP 02/15/[address] Lares with sphincterotomy and one CBD stone was extracted with balloon. There was pancreas divisum present with no other pancreatic abnormalities. Lipase is WNL at 29. Total bilirubin is 4.7. WBC increased to 12,600 today from 7,700. I suspect that this is reactive as she had ERCP yesterday. She has no complaints of subjective fever, chills, nausea, vomiting, or abdominal pain. She is afebrile. Continue to monitor closely for complications Will await general surgery recommendations regarding discharge General surgery is on board for cholecystectomy and she can have this done inpatient vs outpatient. The patient is unsure if she wants to proceed or not at this time and has expressed that she prefers to have this done outpatient. (2) Obstructive jaundice: Code(s): K83.1 - Obstruction of bile duct Status: Acute Assessment and Plan: As above. (3) Hepatitis: Code(s): K75.9 - Inflammatory liver disease, unspecified Status: Acute Assessment and Plan: LFTs are trending down. AST is 146, ALT is 414, and alkaline phosphatase is 202. I suspect that this was due to choledocholithiasis. Hepatitis panel was negative. Monoscreen is negative. Will trend LFTs and continue to monitor (4) Cholelithiasis: Qualifiers: Cholelithiasis location: gallbladder and bile duct Cholecystitis presence: without cholecystitis Biliary obstruction: with biliary obstruction Qualified Code(s): K80.71 - Calculus of gallbladder and bile duct without cholecystitis with obstruction Code(s): K80.20 - Calculus of gallbladder without cholecystitis without obstruction Status: Acute Assessment and Plan: MRCP revealed 11mm gallstone in the dependent neck of the gallbladder and a 3mm gallstone at the nondependent funds. There is no gallbladder wall thickening or surrounding pericholecystic inflammatory stranding to suggest acute cholecystitis. General surgery is on board and has advised cholecystectomy. The patient is unsure if she wants to proceed at this time. I encouraged her that I would strongly recommend cholecystectomy as she is at risk for cholelithiasis, recurrent choledocholithiasis, pancreatitis, and ascending cholangitis. Time Spent With Patient Time with patient: 15 - 25 minutes Subjective Date/time seen: 02/16/20 09:09 Interval history: Mrs. Castaneda was seen and examined at bedside in follow-up for choledocholithiasis s/p ERCP yesterday. She reports that she is feeling much better. She tolerated a low fat diet well for dinner without any nausea or vomiting. Her cough following ERCP due to irritation from the anesthetic is resolving. She denies abdominal pain. She denies headaches, lightheadedness, and dizziness. She talked with her mom and would like to consider cholecystectomy outpatient. She is unsure if she will proceed or not. Review of Systems Review of Systems: All systems reviewed & are unremarkable except as noted in HPI and below Exam Narrative: Exam Narrative: General: Obese, well-developed, and well-nourished 19-year-old female sitting in the semi-recumbent position in bed watching TV. HEENT: Normocephalic and atraumatic. Scleral icterus present but
--- NOTE | 2020-02-16 09:18 | WPDGIPROGNO ---
Progress Note: A&P Additional Plan Patient feels much better today. Denies abdominal pain. Tolerating diet. Physical exam reveals her to be obese. Bowel sounds are present soft nontender. ERCP revealed a common bile duct gallstone removed with sphincterotomy and common duct balloon extraction. Patient tolerated the procedure well. LFTs improving. WBC 12. Likely related to recent procedure. 1. Choledocholithiasis. Status post ERCP and stone extraction. 2. Cholelithiasis. Patient will require cholecystectomy. Surgery following. Anticipate cholecystectomy soon. Subjective Date/time seen: 02/16/20 09:18 Objective Data Vital Signs Vital Signs: Vital Signs - 24 hr 02/15/20 12:11 02/15/20 12:21 02/15/20 12:31 Temperature Pulse Rate 68 75 78 Respiratory Rate 14 20 16 Blood Pressure 137/68 131/69 124/77 Pulse Oximetry 100 100 100 02/15/20 12:41 02/15/20 12:51 02/15/20 14:00 Temperature 36.5 C Pulse Rate 75 70 73 Respiratory Rate 20 14 16 Blood Pressure 124/80 116/74 144/73 H Pulse Oximetry 100 100 97 02/15/20 22:00 02/16/20 06:00 Temperature 36.8 C 36.4 C Pulse Rate 102 H 67 Respiratory Rate 18 16 Blood Pressure 130/68 102/50 L Pulse Oximetry 99 99 Intake/Output Intake/Output: Intake & Output 02/13/20 02/14/20 02/15/20 02/16/20 23:59 23:59 23:59 23:59 Intake Total 2977 2640 150 Output Total 1500 1400 500 Balance 1477 1240 -350 Meds/Results Medications: Active Medications Generic Name Dose Route Start Last Admin Trade Name Freq PRN Reason Stop Dose Admin Morphine Sulfate 2 mg 02/13/20 20:55 Morphine Sulfate Inj IV PUSH Q4H PRN Pain Rated 7-10 Ondansetron HCl 4 mg 02/13/20 17:32 Zofran Inj IV PUSH Q4H PRN Nausea Radiology Results: ITS Impressions Upper Quadrant Ultrasound 02/13/20 16:18 IMPRESSION: Cholelithiasis, moderately distended gallbladder and mildly dilated common bile duct. Can't exclude obstructing choledocholithiasis, although no sonographic Mcintosh's sign was demonstrated. MRCP can be considered if indicated clinically. MRCP 02/14/20 09:10 IMPRESSION: 1. Cholelithiasis and obstructing 5 x 6 mm gallstone at the distal common bile duct with secondary intra and extra hepatic biliary ductal dilation. 2. Incidental pancreas divisum. Pancreas is otherwise normal. Endo Retro Cholangiopancreatogram 02/15/20 15:24 IMPRESSION: Fluoroscopy used during ERCP procedure. Limited fluoroscopic images demonstrate contrast in the common duct. Please refer to procedural report for details. Labs Labs: Laboratory Results - last 24 hr 02/16/20 02/16/20 05:39 05:39 WBC 12.6 H RBC 4.31 Hgb 12.4 Hct 38.2 MCV 88.6 MCH 28.8 MCHC 32.5 RDW 14.7 H Plt Count 289 MPV 10.4 Sodium 136 L Potassium 4.1 Chloride 101 Carbon Dioxide 29 BUN 13 D Creatinine 0.60 L Estim Creat Clear Calc 155 Estimated GFR > 60 Glucose 103 Calcium 9.4 Total Bilirubin 4.7 H AST 146 H ALT 414 H Alkaline Phosphatase 202 H Total Protein 8.0 Albumin 4.1 Lipase 26
--- NOTE | 2020-02-16 10:47 | PM.PNGS ---
Progress Note: A&P Assessment and Plan (1) Choledocholithiasis with obstruction: Code(s): K80.51 - Calculus of bile duct without cholangitis or cholecystitis with obstruction Status: Acute Assessment and Plan: s/p ERCP c stone extraction, doing well, long d/w pt re: interval cholecystectomy and pt would like to wait and schedule procedure as outpt, pt to f/u c me in 2 wks and schedule outpt cholecystectomy, cont low fat diet for now (2) Obesity: Code(s): E66.9 - Obesity, unspecified Status: Acute Assessment and Plan: low fat diet, exercise Subjective Subjective Date/Time Seen: 02/16/20 10:47 Pt feels much better today. Pt reports no abd pain, nausea. Pt ninoska low fat diet. Review of Systems Constitutional: Constitutional: Denies chills, Reports fatigue and Reports lethargy Cardiovascular: Cardiovascular: Denies chest pain and Denies palpitations Respiratory: Respiratory: Denies dyspnea Gastrointestinal: Gastrointestinal: Denies abdominal pain, Reports bloating, Denies constipation, Denies diarrhea, Denies nausea and Denies vomiting Exam Const: General: no acute distress Resp: Auscultation: clear to auscultation bilaterally Cardio: Rate: regular rate Rhythm: regular rhythm GI: Other: SNTND Skin: Other: jaundiced but improved Objective Data Vital Signs Vital Signs: Vital Signs - 24 hr 02/15/20 12:11 02/15/20 12:21 02/15/20 12:31 Temperature Pulse Rate 68 75 78 Respiratory Rate 14 20 16 Blood Pressure 137/68 131/69 124/77 Pulse Oximetry 100 100 100 02/15/20 12:41 02/15/20 12:51 02/15/20 14:00 Temperature 36.5 C Pulse Rate 75 70 73 Respiratory Rate 20 14 16 Blood Pressure 124/80 116/74 144/73 H Pulse Oximetry 100 100 97 02/15/20 22:00 02/16/20 06:00 Temperature 36.8 C 36.4 C Pulse Rate 102 H 67 Respiratory Rate 18 16 Blood Pressure 130/68 102/50 L Pulse Oximetry 99 99 Intake/Output Intake/Output: Intake & Output 02/13/20 02/14/20 02/15/20 02/16/20 23:59 23:59 23:59 23:59 Intake Total 2977 2640 150 Output Total 1500 1400 500 Balance 1477 1240 -350 Meds/Results Medications: Active Medications Generic Name Dose Route Start Last Admin Trade Name Freq PRN Reason Stop Dose Admin Morphine Sulfate 2 mg 02/13/20 20:55 Morphine Sulfate Inj IV PUSH Q4H PRN Pain Rated 7-10 Ondansetron HCl 4 mg 02/13/20 17:32 Zofran Inj IV PUSH Q4H PRN Nausea Radiology Results: ITS Impressions Upper Quadrant Ultrasound 02/13/20 16:18 IMPRESSION: Cholelithiasis, moderately distended gallbladder and mildly dilated common bile duct. Can't exclude obstructing choledocholithiasis, although no sonographic Mcintosh's sign was demonstrated. MRCP can be considered if indicated clinically. MRCP 02/14/20 09:10 IMPRESSION: 1. Cholelithiasis and obstructing 5 x 6 mm gallstone at the distal common bile duct with secondary intra and extra hepatic biliary ductal dilation. 2. Incidental pancreas divisum. Pancreas is otherwise normal. Endo Retro Cholangiopancreatogram 02/15/20 15:24 IMPRESSION: Fluoroscopy used during ERCP procedure. Limited fluoroscopic images demonstrate contrast in the common duct. Please refer to procedural report for details. Labs Labs: Laboratory Results - last 24 hr 02/16/20 02/16/20 05:39 05:39 WBC 12.6 H RBC 4.31 Hgb 12.4 Hct 38.2 MCV 88.6 MCH 28.8 MCHC 32.5 RDW 14.7 H Plt Count 289 MPV 10.4 Sodium 136 L Potassium 4.1 Chloride 101 Carbon Dioxide 29 BUN 13 D Creatinine 0.60 L Estim Creat Clear Calc 155 Estimated GFR > 60 Glucose 103 Calcium 9.4 Total Bilirubin 4.7 H AST 146 H ALT 414 H Alkaline Phosphatase 202 H Total Protein 8.0 Albumin 4.1 Lipase 26 Quality VTE Prophylaxis VTE prophylaxis: mechanical ordered (SCDs)
[2020-02-16 14:00] VITALS: BP 124/63; PULSE 84; RESP 20; TEMP 36.7; O2SAT 98
[2020-02-16 21:59] VITALS: BP 118/56; PULSE 98; RESP 18; TEMP 36.8; O2SAT 100
[2020-02-17 06:00] VITALS: BP 125/51; PULSE 69; RESP 16; TEMP 36.3; O2SAT 100
[2020-02-17 06:24] LABS: Hematocrit 34.3 % (37.0-47.0); Hemoglobin 11.1 g/dL (12.0-15.0); Mean Corpuscular HGB Conc 32.4 g/dl (32-36); Mean Corpuscular Hemoglobin 29.1 pg (26-34); Mean Corpuscular Volume 89.8 fl (80-100); Mean Platelet Volume 10.7 fl (7.4-10.4); Platelet Count Result 270 k/mm3 (150-375); Red Blood Count 3.82 M/mm3 (4.2-5.4); Red Cell Distribution Width 14.6 % (11.5-14.5); White Blood Count 10.1 K/mm3 (4.5-10.0)
[2020-02-17 06:52] LABS: Alanine Aminotransferase 355 U/L (4-35); Albumin Level 3.7 g/dL (3.5-5.1); Alkaline Phosphatase 154 U/L (38-126); Aspartate Amino Transferase 130 U/L (14-36); Bilirubin,Total 3.1 mg/dL (0.2-1.3); Blood Urea Nitrogen 25 mg/dL (7-17); Carbon Dioxide 25 mmol/L (22-30); Chloride 103 mmol/L (98-107); Estimated CRCL calculation 155 ml/min; Estimated Glomerular Filt Rate > 60; Glucose 80 mg/dL (65-105); Potassium 3.7 mmol/L (3.4-5.0); Sodium 136 mmol/L (137-145)
--- NOTE | 2020-02-17 07:59 | PM.PNGS ---
Progress Note: A&P Assessment and Plan (1) Choledocholithiasis with obstruction: Code(s): K80.51 - Calculus of bile duct without cholangitis or cholecystitis with obstruction Status: Acute Assessment and Plan: LFTs trending toward normal, cont low fat diet, plan for interval pierce in am Subjective Subjective Date/Time Seen: 02/17/20 07:59 Pt feels ok, ninoska diet. Pt reports some mild epigastric discomfort, but no nausea. Review of Systems Constitutional: Constitutional: Reports fatigue Cardiovascular: Cardiovascular: Denies chest pain and Denies palpitations Respiratory: Respiratory: Denies dyspnea Gastrointestinal: Gastrointestinal: Reports abdominal pain, Reports bloating, Denies constipation, Denies diarrhea, Denies nausea and Denies vomiting Exam Const: General: no acute distress Resp: Auscultation: clear to auscultation bilaterally Cardio: Rate: regular rate Rhythm: regular rhythm GI: Other: S, sl dist, mild TTP epigastrium Objective Data Vital Signs Vital Signs: Vital Signs - 24 hr 02/16/20 14:00 02/16/20 21:59 02/17/20 06:00 Temperature 36.7 C 36.8 C 36.3 C L Pulse Rate 84 98 69 Respiratory Rate 20 18 16 Blood Pressure 124/63 118/56 L 125/51 L Pulse Oximetry 98 100 100 Intake/Output Intake/Output: Intake & Output 02/14/20 02/15/20 02/16/20 02/17/20 23:59 23:59 23:59 23:59 Intake Total 2977 2640 1230 500 Output Total 1500 1400 900 950 Balance 1477 1240 330 -450 Meds/Results Medications: Active Medications Generic Name Dose Route Start Last Admin Trade Name Freq PRN Reason Stop Dose Admin Morphine Sulfate 2 mg 02/13/20 20:55 Morphine Sulfate Inj IV PUSH Q4H PRN Pain Rated 7-10 Ondansetron HCl 4 mg 02/13/20 17:32 Zofran Inj IV PUSH Q4H PRN Nausea Radiology Results: ITS Impressions Upper Quadrant Ultrasound 02/13/20 16:18 IMPRESSION: Cholelithiasis, moderately distended gallbladder and mildly dilated common bile duct. Can't exclude obstructing choledocholithiasis, although no sonographic Mcintosh's sign was demonstrated. MRCP can be considered if indicated clinically. MRCP 02/14/20 09:10 IMPRESSION: 1. Cholelithiasis and obstructing 5 x 6 mm gallstone at the distal common bile duct with secondary intra and extra hepatic biliary ductal dilation. 2. Incidental pancreas divisum. Pancreas is otherwise normal. Endo Retro Cholangiopancreatogram 02/15/20 15:24 IMPRESSION: Fluoroscopy used during ERCP procedure. Limited fluoroscopic images demonstrate contrast in the common duct. Please refer to procedural report for details. Labs Labs: Laboratory Results - last 24 hr 02/17/20 02/17/20 05:43 05:43 WBC 10.1 H RBC 3.82 L Hgb 11.1 L Hct 34.3 L MCV 89.8 MCH 29.1 MCHC 32.4 RDW 14.6 H Plt Count 270 MPV 10.7 H Sodium 136 L Potassium 3.7 Chloride 103 Carbon Dioxide 25 BUN 25 H D Creatinine 0.60 L Estim Creat Clear Calc 155 Estimated GFR > 60 Glucose 80 Calcium 9.0 Total Bilirubin 3.1 H AST 130 H ALT 355 H Alkaline Phosphatase 154 H Total Protein 7.0 Albumin 3.7 Quality VTE Prophylaxis VTE prophylaxis: mechanical ordered (SCDs)
--- NOTE | 2020-02-17 08:37 | WPDGIPROGNO ---
Progress Note: A&P Additional Plan Patient alert and comfortable this morning. Does not required additional pain medications at this time. Physical exam reveals her to be alert. Vital signs stable. Abdomen is obese. Nontender at this time. Labs reveal total bilirubin 3.1, AST 130, ALT 355, alk-phos 154, Impression: cholelithiasis and choledocholithiasis. Patient is status post ERCP with common duct stone extraction. Plan is for cholecystectomy per surgery. I understand is to be performed Tuesday. Plan to continue monitor LFTs to ensure resolution. Subjective Date/time seen: 02/17/20 08:37 Objective Data Vital Signs Vital Signs: Vital Signs - 24 hr 02/16/20 14:00 02/16/20 21:59 02/17/20 06:00 Temperature 36.7 C 36.8 C 36.3 C L Pulse Rate 84 98 69 Respiratory Rate 20 18 16 Blood Pressure 124/63 118/56 L 125/51 L Pulse Oximetry 98 100 100 Intake/Output Intake/Output: Intake & Output 02/14/20 02/15/20 02/16/20 02/17/20 23:59 23:59 23:59 23:59 Intake Total 2977 2640 1230 500 Output Total 1500 1400 900 950 Balance 1477 1240 330 -450 Meds/Results Medications: Active Medications Generic Name Dose Route Start Last Admin Trade Name Freq PRN Reason Stop Dose Admin Morphine Sulfate 2 mg 02/13/20 20:55 Morphine Sulfate Inj IV PUSH Q4H PRN Pain Rated 7-10 Ondansetron HCl 4 mg 02/13/20 17:32 Zofran Inj IV PUSH Q4H PRN Nausea Radiology Results: ITS Impressions Upper Quadrant Ultrasound 02/13/20 16:18 IMPRESSION: Cholelithiasis, moderately distended gallbladder and mildly dilated common bile duct. Can't exclude obstructing choledocholithiasis, although no sonographic Mcintosh's sign was demonstrated. MRCP can be considered if indicated clinically. MRCP 02/14/20 09:10 IMPRESSION: 1. Cholelithiasis and obstructing 5 x 6 mm gallstone at the distal common bile duct with secondary intra and extra hepatic biliary ductal dilation. 2. Incidental pancreas divisum. Pancreas is otherwise normal. Endo Retro Cholangiopancreatogram 02/15/20 15:24 IMPRESSION: Fluoroscopy used during ERCP procedure. Limited fluoroscopic images demonstrate contrast in the common duct. Please refer to procedural report for details. Labs Labs: Laboratory Results - last 24 hr 02/17/20 02/17/20 05:43 05:43 WBC 10.1 H RBC 3.82 L Hgb 11.1 L Hct 34.3 L MCV 89.8 MCH 29.1 MCHC 32.4 RDW 14.6 H Plt Count 270 MPV 10.7 H Sodium 136 L Potassium 3.7 Chloride 103 Carbon Dioxide 25 BUN 25 H D Creatinine 0.60 L Estim Creat Clear Calc 155 Estimated GFR > 60 Glucose 80 Calcium 9.0 Total Bilirubin 3.1 H AST 130 H ALT 355 H Alkaline Phosphatase 154 H Total Protein 7.0 Albumin 3.7
--- NOTE | 2020-02-17 08:53 | PM.IMPN ---
Progress Note: A&P Assessment and Plan (1) Cholelithiasis: Qualifiers: Cholelithiasis location: gallbladder and bile duct Cholecystitis presence: without cholecystitis Biliary obstruction: with biliary obstruction Qualified Code(s): K80.71 - Calculus of gallbladder and bile duct without cholecystitis with obstruction Code(s): K80.20 - Calculus of gallbladder without cholecystitis without obstruction Status: Acute Assessment and Plan: MRCP revealed 11mm gallstone in the dependent neck of the gallbladder and a 3mm gallstone at the nondependent funds. There is no gallbladder wall thickening or surrounding pericholecystic inflammatory stranding to suggest acute cholecystitis. She is afebrile. General surgery is on board and has advised cholecystectomy. The patient has decided that she would like to proceed with cholecystectomy tomorrow by Dr. Perez. NPO at midnight (2) Choledocholithiasis with obstruction: Code(s): K80.51 - Calculus of bile duct without cholangitis or cholecystitis with obstruction Status: Resolved Assessment and Plan: The patient presented with c/o jaundice for 3 days, nausea, intermittent RUQ pain, vomiting, and decreased PO intake. She also reported acholic stools and dark urine. LFTs and bilirubin were elevated. UA revealed bilirubin and urobilinogen. MRCP revealed cholelithiasis and obstructing 5x6mm gallstone at the distal common bile duct which is dilated to 12mm and tapers to 5mm with secondary intra and extra hepatic biliary ductal dilation. GI is on board and the patient underwent ERCP 02/15/[address] Lares with sphincterotomy and one CBD stone was extracted with balloon. There was pancreas divisum present with no other pancreatic abnormalities. Lipase is WNL. WBC is trending down and is 10,100 today. I suspect that her leukocytosis is reactive as she had ERCP yesterday. She has no complaints of subjective fever, chills, nausea, vomiting, or abdominal pain. She is afebrile. Bilirubin today is 3.1 and her jaundice has resolved. Continue to monitor closely for complications (3) Obstructive jaundice: Code(s): K83.1 - Obstruction of bile duct Status: Resolved Assessment and Plan: Resolved s/p ERCP. (4) Hepatitis: Code(s): K75.9 - Inflammatory liver disease, unspecified Status: Acute Assessment and Plan: LFTs are trending down slowly. AST is 130, ALT is 355, and alkaline phosphatase is 154. Suspected etiology is choledocholithiasis. MRCP revealed intra and extra hepatic biliary ductal dilation. Hepatitis panel was negative. Monoscreen is negative. Continue to monitor Time Spent With Patient Time with patient: 15 - 25 minutes Subjective Date/time seen: 02/17/20 08:53 Interval history: Mrs. Castaneda is seen and examined at bedside in follow-up for choledocholithiasis s/p ERCP by Dr. Lares 02/14. She decided she would like to proceed with cholecystectomy and this has been arranged for . She reports very mild right sided abdominal discomfort today. She denies nausea and vomiting. She is tolerating a low fat diet well. She denies chest pain and shortness of breath. She denies cough. She denies subjective fever and chills. She reports mild lightheadedness yesterday and her menstrual cycle started yesterday. She no longer feels dizzy or lightheaded. She denies urinary symptoms Her last bowel movement was last night. She denies diarrhea. She has no other complaints today. Review of Systems Review of Systems: All systems reviewed & are unremarkable except as noted in HPI and below Exam Narrative: Exam Narrative: General: Obese, well-developed, and well-nourished 19-year-old female sitting in the semi-hamilton's position in bed watching TV. HEENT: Normocephalic and atraumatic. Sclerae anicteric. Conjunctivae and lids normal. EOMI. Mucous membranes moist. Neck: Supple without lymphadenopathy or masses. Cardiac: Regular r
[2020-02-17 14:00] VITALS: BP 126/55; PULSE 75; RESP 18; TEMP 36.1; O2SAT 100
[2020-02-17 22:00] VITALS: BP 121/77; PULSE 80; RESP 16; TEMP 36.1; O2SAT 100
[2020-02-18] VITALS (14 sets, daily range): BP systolic 95–138; BP diastolic 48–74; PULSE 56–95; RESP 10–20; TEMP 36–36.8; O2SAT 95–100
[2020-02-18 05:55] LABS: Hematocrit 30.9 % (37.0-47.0); Hemoglobin 9.9 g/dL (12.0-15.0); Mean Corpuscular Hemoglobin 29.4 pg (26-34); Mean Corpuscular Volume 91.7 fl (80-100); Platelet Count Result 238 k/mm3 (150-375); Red Blood Count 3.37 M/mm3 (4.2-5.4); Red Cell Distribution Width 14.2 % (11.5-14.5); White Blood Count 8.3 K/mm3 (4.5-10.0)
[2020-02-18 06:17] LABS: Alanine Aminotransferase 315 U/L (4-35); Albumin Level 3.4 g/dL (3.5-5.1); Alkaline Phosphatase 126 U/L (38-126); Aspartate Amino Transferase 113 U/L (14-36); Bilirubin,Total 2.4 mg/dL (0.2-1.3); Blood Urea Nitrogen 14 mg/dL (7-17); Calcium 8.9 mg/dL (8.4-10.2); Carbon Dioxide 28 mmol/L (22-30); Chloride 103 mmol/L (98-107); Estimated CRCL calculation 155 ml/min; Estimated Glomerular Filt Rate > 60; Glucose 81 mg/dL (65-105); Potassium 3.9 mmol/L (3.4-5.0); Sodium 137 mmol/L (137-145)
--- NOTE | 2020-02-18 07:48 | WPDGIPROGNO ---
Progress Note: A&P Additional Plan Patient doing well this morning. The abdominal pain is abated. Jaundice is lessening. \ Physical exam reveals abdomen to be obese. Bowel sounds are present soft nontender. Labs reveal decline in liver function tests. Total bilirubin 2.4, AST 113, ALT 315. Impression 1. Cholelithiasis. Patient to have cholecystectomy today. 2. Choledocholithiasis. Common bile duct stone extracted with ERCP. Patient recovering well from this. Plan is for lap choly today. Await surgical findings. Subjective Date/time seen: 02/18/20 07:48 Objective Data Vital Signs Vital Signs: Vital Signs - 24 hr 02/17/20 14:00 02/17/20 22:00 02/18/20 06:00 Temperature 36.1 C L 36.1 C L 36.2 C L Pulse Rate 75 80 86 Respiratory Rate 18 16 20 Blood Pressure 126/55 L 121/77 138/74 Pulse Oximetry 100 100 99 02/18/20 07:39 Temperature 36.2 C L Pulse Rate 71 Respiratory Rate 16 Blood Pressure 121/50 L Pulse Oximetry 100 Intake/Output Intake/Output: Intake & Output 02/15/20 02/16/20 02/17/20 02/18/20 23:59 23:59 23:59 23:59 Intake Total 2640 1230 1540 360 Output Total 3059 218 0716 1200 Balance 1240 330 -160 -840 Meds/Results Medications: Active Medications Generic Name Dose Route Start Last Admin Trade Name Freq PRN Reason Stop Dose Admin Morphine Sulfate 2 mg 02/13/20 20:55 Morphine Sulfate Inj IV PUSH Q4H PRN Pain Rated 7-10 Ondansetron HCl 4 mg 02/13/20 17:32 Zofran Inj IV PUSH Q4H PRN Nausea Radiology Results: ITS Impressions Upper Quadrant Ultrasound 02/13/20 16:18 IMPRESSION: Cholelithiasis, moderately distended gallbladder and mildly dilated common bile duct. Can't exclude obstructing choledocholithiasis, although no sonographic Mcintosh's sign was demonstrated. MRCP can be considered if indicated clinically. MRCP 02/14/20 09:10 IMPRESSION: 1. Cholelithiasis and obstructing 5 x 6 mm gallstone at the distal common bile duct with secondary intra and extra hepatic biliary ductal dilation. 2. Incidental pancreas divisum. Pancreas is otherwise normal. Endo Retro Cholangiopancreatogram 02/15/20 15:24 IMPRESSION: Fluoroscopy used during ERCP procedure. Limited fluoroscopic images demonstrate contrast in the common duct. Please refer to procedural report for details. Labs Labs: Laboratory Results - last 24 hr 02/18/20 02/18/20 05:26 05:26 WBC 8.3 RBC 3.37 L Hgb 9.9 L Hct 30.9 L MCV 91.7 MCH 29.4 MCHC 32.0 RDW 14.2 Plt Count 238 MPV 11.0 H Sodium 137 Potassium 3.9 Chloride 103 Carbon Dioxide 28 BUN 14 D Creatinine 0.60 L Estim Creat Clear Calc 155 Estimated GFR > 60 Glucose 81 Calcium 8.9 Total Bilirubin 2.4 H AST 113 H ALT 315 H Alkaline Phosphatase 126 Total Protein 6.0 L Albumin 3.4 L
--- NOTE | 2020-02-18 07:53 | P.PNAN_ITS ---
Anes - Eval Final PreProcedure Day of Procedure 02/18/20 07:53 Patient weight: obese Heart: regular rate and rhythm Lungs: clear to auscultation Airway: Mallampati scale class II Neurological: alert and oriented Last oral intake: >/= 8 hours ASA classification: III Emergent: no Anesthetic plan: proceed Anesthesia type and monitoring: general ETT and standard monitoring Informed Consent: The patient's anesthetic plan and its attendant risks and be nefits were discussed with the patient/family/POA. Questions were solicited and answers provided to the satisfaction of the patient/family/POA.
--- NOTE | 2020-02-18 08:07 | PC.NURSE ---
pt to OR via bed per hospital staff.
[2020-02-18] MEDS: LACTATED RINGERS 1,000 ML 30 ML IV CONT (08:30)
[2020-02-18] MEDS: BUPIVACAINE/EPINEPHRINE 0.5% 30 ML VIAL INFILTRATE (09:56)
--- NOTE | 2020-02-18 11:21 | P.OP_ITS ---
Procedure Note - Detailed Date of procedure: 02/18/20 Pre-op diagnosis: Jaundice Post-op diagnosis: same Procedure performed: laparoscopic cholecystectomy Description of procedure: The patient was taken to the operating room placed in the supine position. After adequate induction of general anesthesia, the patient was prepped and draped in normal sterile fashion. A time-out was then performed to verify the patient's identity as well as the procedure being performed. I then made a 5 mm incision in the infraumbilical region. Through this, a Veress needle was placed into the peritoneal cavity and CO2 gas was then insufflated. After adequate pneumoperitoneum was achieved, the Veress needle was removed and a 5 mm trocar was placed through this incision. I then placed the laparoscope through this trocar site and under direct visualization placed a further 12 mm subxiphoid port as well as 2 additional 5 mm ports in the right upper abdomen. The gallbladder was then identified and was noted to be inflamed and thickened. I was able to place a grasper at the dome of the gallbladder and this was retracted anterior and cephalad up over the liver. A 2nd retractor was then placed at the infundibulum and retracted laterally, this allowed visualization of the triangle of Calot. I then was able to visualize the cystic duct in its entirety from its proximal insertion into the gallbladder, to its distal junction with the common hepatic/common bile duct junction. At this point, I carefully skeletonized the proximal cystic duct with the [place] dissector. I then clipped and transected the proximal cystic duct. Next I visualized the cystic artery. Again the artery was skeletonized, clipped, and transected. I then used the Bovie cautery to take down the peritoneal attachments of the gallbladder off the liver bed. This was done with some difficulty, given the amount of inflammation. Once the gallbladder specimen was completely detached, an endo-pouch was placed through the 12 mm port site. I then placed the gallbladder specimen into the Endo pouch and removed the endo- pouch from the 12 mm port site. The specimen will now be sent to pathology for further review. I then copiously irrigated the right upper quadrant. Hemostasis was noted in the liver bed, the clips were noted to be in good position on both the cystic duct stump and the cystic artery stump. No other pathology was noted in the right upper quadrant. I then moved the laparoscope to the subxiphoid port. No iatrogenic injury or other pathology was noted in the lower abdomen. At this point, the abdomen was desufflated and all ports removed . The fascia of the 12 mm subxiphoid port was closed with a 0 Vicryl figure of 8 suture. All port sites were then closed with 4.O Monocryl subcuticular sutures. Dermabond was placed on each incision. The patient tolerated the procedure well, was extubated in the operating room postoperative and will be transferred to the recovery room in stable condition. Implants: none Anesthesia: GETA Surgeon: Ashanti Perez MD Estimated blood loss (mL): 20 Drains: No Packing: No Pathology: yes Complications: No immediate complications Condition: stable Disposition: PACU Findings: acute cholecystitis, cholelithiasis
--- NOTE | 2020-02-18 12:04 | PC.NURSE ---
pt arrives from OR, alert and awake. ice chips given.
--- NOTE | 2020-02-18 15:10 | PM.IMPN ---
Progress Note: A&P Assessment and Plan (1) Cholelithiasis: Qualifiers: Cholelithiasis location: gallbladder and bile duct Cholecystitis presence: without cholecystitis Biliary obstruction: with biliary obstruction Qualified Code(s): K80.71 - Calculus of gallbladder and bile duct without cholecystitis with obstruction Code(s): K80.20 - Calculus of gallbladder without cholecystitis without obstruction Status: Acute Assessment and Plan: MRCP revealed 11mm gallstone in the dependent neck of the gallbladder and a 3mm gallstone at the nondependent funds. There is no gallbladder wall thickening or surrounding pericholecystic inflammatory stranding to suggest acute cholecystitis. She is afebrile. She underwent laparoscopic cholecystectomy today by Dr. Perez. She reports that she does not feel comfortable leaving tonight and would like to stay overnight. She does endorse pain 4/10. Continue analgesics PRN (2) Choledocholithiasis with obstruction: Qualifiers: Cholecystitis presence: without cholecystitis Qualified Code(s): K80.51 - Calculus of bile duct without cholangitis or cholecystitis with obstruction Code(s): K80.51 - Calculus of bile duct without cholangitis or cholecystitis with obstruction Status: Resolved Assessment and Plan: The patient presented with c/o jaundice for 3 days, nausea, intermittent RUQ pain, vomiting, and decreased PO intake. She also reported acholic stools and dark urine. LFTs and bilirubin were elevated. UA revealed bilirubin and urobilinogen. MRCP revealed cholelithiasis and obstructing 5x6mm gallstone at the distal common bile duct which is dilated to 12mm and tapers to 5mm with secondary intra and extra hepatic biliary ductal dilation. GI is on board and the patient underwent ERCP 02/15/[address] Lares with sphincterotomy and one CBD stone was extracted with balloon. There was pancreas divisum present with no other pancreatic abnormalities. Lipase is WNL. She had reactive leukocytosis following ERCP yesterday which has resolved today. Bilirubin is 2.4. Continue to monitor closely for complications (3) Obstructive jaundice: Code(s): K83.1 - Obstruction of bile duct Status: Resolved Assessment and Plan: Resolved s/p ERCP. (4) Hepatitis: Code(s): K75.9 - Inflammatory liver disease, unspecified Status: Acute Assessment and Plan: LFTs are trending down slowly. AST is 113, ALT is 315, and alkaline phosphatase is 126. The suspected etiology is choledocholithiasis. MRCP revealed intra and extra hepatic biliary ductal dilation. Hepatitis panel was negative. Monoscreen is negative. Continue to monitor Plan for repeat CMP outpatient to ensure resolution (5) Anemia: Code(s): D64.9 - Anemia, unspecified Status: Acute Assessment and Plan: Hb today is 9.. and Hct 30.9. She is on her menstrual cycle at this time which likely explains this. Will check iron panel Continue to monitor Subjective Date/time seen: 02/18/20 15:10 Interval history: Ms. Castaneda was seen and examined at bedside this afternoon s/p laparoscopic cholecystectomy today by Dr. Perez. She reports mild pain at the operative site which she rates at 4/10. She denies nausea and vomiting. She denies chest pain and shortness of breath. She denies cough. She has no other concerns today. Review of Systems Review of Systems: All systems reviewed & are unremarkable except as noted in HPI and below Exam Narrative: Exam Narrative: General: Obese, well-developed, and well-nourished 19 y.o. female lying supine resting post-op. She is in no acute distress. HEENT: Normocephalic and atraumatic. Sclerae anicteric. Conjunctivae and lids normal. EOMI. Mucous membranes moist. Neck: Supple without lymphadenopathy or masses. Cardiac: Regular rate and rhythm. S1 and S2 normal. Lungs: Effort normal. Lungs are clear
[2020-02-19 02:00] VITALS: BP 133/72; PULSE 79; RESP 20; TEMP 36.2; O2SAT 98
[2020-02-19 05:39] LABS: Hematocrit 33.5 % (37.0-47.0); Hemoglobin 10.8 g/dL (12.0-15.0); Mean Corpuscular HGB Conc 32.2 g/dl (32-36); Mean Corpuscular Hemoglobin 29.3 pg (26-34); Mean Corpuscular Volume 90.8 fl (80-100); Mean Platelet Volume 11.1 fl (7.4-10.4); Platelet Count Result 297 k/mm3 (150-375); Red Blood Count 3.69 M/mm3 (4.2-5.4); White Blood Count 19.2 K/mm3 (4.5-10.0)
[2020-02-19 05:54] LABS: Alanine Aminotransferase 325 U/L (4-35); Albumin Level 4.3 g/dL (3.5-5.1); Alkaline Phosphatase 145 U/L (38-126); Aspartate Amino Transferase 112 U/L (14-36); Bilirubin,Total 2.5 mg/dL (0.2-1.3); Blood Urea Nitrogen 7 mg/dL (7-17); Calcium 9.3 mg/dL (8.4-10.2); Carbon Dioxide 30 mmol/L (22-30); Chloride 99 mmol/L (98-107); Estimated CRCL calculation 155 ml/min; Estimated Glomerular Filt Rate > 60; Glucose 143 mg/dL (65-105); Sodium 137 mmol/L (137-145)
[2020-02-19 06:00] VITALS: BP 139/82; PULSE 82; RESP 20; TEMP 36.1; O2SAT 98
[2020-02-19 06:00] LABS: Transferrin 251 mg/dL (206-381)
[2020-02-19 06:10] LABS: Iron 57 ug/dL (37-170)
[2020-02-19 06:23] LABS: Percent Iron Saturation 16 % (20-50)
--- NOTE | 2020-02-19 08:27 | PM.PNGS ---
Progress Note: A&P Assessment and Plan (1) Chronic cholecystitis due to cholelithiasis with choledocholithiasis: Code(s): K80.64 - Calculus of gallbladder and bile duct with chronic cholecystitis without obstruction Status: Acute Assessment and Plan: patient having more postoperative pain that I would expect. Will go ahead and get a stat ultrasound of the right upper quadrant. If normal, would consider this to just be incisional postoperative pain and try increasing her analgesics dose. Possibly home later today although she is pretty uncomfortable this morning. (2) Choledocholithiasis with obstruction: Qualifiers: Cholecystitis presence: without cholecystitis Qualified Code(s): K80.51 - Calculus of bile duct without cholangitis or cholecystitis with obstruction Code(s): K80.51 - Calculus of bile duct without cholangitis or cholecystitis with obstruction Status: Resolved Assessment and Plan: ERCP with sphincterotomy done February 14. LFTs have come down steadily since then. Subjective Subjective Date/Time Seen: 02/19/20 08:27 Having more abdominal pain than I would expect after having had gallbladder surgery yesterday. She is taking [place] 02/09/2025 q.4 hours but still is not wanting to walk or move about. The pain does not seem to be localized. She complains of lower abdominal pain, pain in her shoulders, and pain with a deep breath. She says it feels like she needs to pass gas but cannot. Prior to surgery, the patient was not taking anything for pain. She is opioid naive. Review of Systems Review of Systems: All systems reviewed & are unremarkable except as noted in HPI and below ( HPI) Constitutional: Constitutional: Reports body ache(s), Denies chills, Denies fever(s), Denies headache(s) and Denies night sweats Exam Const: General: no acute distress, alert, awake and uncomfortable Nutritional Appearance: obese Orientation/consciousness: patient oriented x3 Resp: Effort & Inspection: normal respiratory effort Auscultation: clear to auscultation bilaterally Cardio: Rate: regular rate Rhythm: regular rhythm GI: Inspection: non-distended, incision ( all incisions look good. No excessive bruising or swelling) and obesity GI Palp: Yes Tenderness to palpation present (GI) ( mild tenderness throughout), No Guarding due to palpation present (GI) and No Rebound tenderness present Auscultation: normal bowel sounds Objective Data Vital Signs Vital Signs: Vital Signs - 24 hr 02/18/20 08:30 02/18/20 10:31 02/18/20 10:45 Temperature 36.7 C 36.1 C L Pulse Rate 95 75 56 L Respiratory Rate 18 18 12 Blood Pressure 133/58 L 124/48 L 117/62 Pulse Oximetry 100 100 98 02/18/20 11:00 02/18/20 11:15 02/18/20 11:30 Temperature Pulse Rate 72 57 L 58 L Respiratory Rate 20 14 12 Blood Pressure 110/50 L 109/61 100/50 L Pulse Oximetry 95 100 97 02/18/20 11:50 02/18/20 12:05 02/18/20 12:35 Temperature 36.0 C L 36.0 C L 36.2 C L Pulse Rate 62 62 69 Respiratory Rate 16 14 16 Blood Pressure 112/65 117/72 116/61 Pulse Oximetry 100 98 97 02/18/20 13:35 02/18/20 14:00 02/18/20 21:59 Temperature 36.2 C L 36.2 C L 36.8 C Pulse Rate 89 89 72 Respiratory Rate 16 16 16 Blood Pressure 128/70 128/70 125/70 Pulse Oximetry 98 98 99 02/19/20 02:00 02/19/20 06:00 Temperature 36.2 C L 36.1 C L Pulse Rate 79 82 Respiratory Rate 20 20 Blood Pressure 133/72 139/82 Pulse Oximetry 98 98 Intake/Output Intake/Output: Intake & Output 02/16/20 02/17/20 02/18/20 02/19/20 23:59 23:59 23:59 23:59 Intake Total 1230 4531 449 4978 Output Total 900 1700 1500 1100 Balance 330 -690 -617 140 Meds/Results Medications: Active Medications Generic Name Dose Route Start Last Admin Trade Name Freq PRN Reason Stop Dose Admin Acetaminophen 650 mg 02/18/20 15:10 Tylenol Tablet PO Q4H PRN Pain 1-3 Hydrocodone Bitart/Acetaminophen 1 tab 02/18/20 11:25
--- NOTE | 2020-02-19 08:57 | WPDANESPN ---
Anes - Prog Note Post-Op Date/Time: 02/19/20 08:57 Cardiovascular status: normal Respiratory status: normal Airway patency: baseline Mental status: baseline Post-Op hydration status: normal Vital Signs: Last Vital Signs Temp 36.1 C L 02/19/20 06:00 Pulse 82 02/19/20 06:00 Resp 20 02/19/20 06:00 BP 139/82 02/19/20 06:00 Pulse Ox 98 02/19/20 06:00 I/O: Intake & Output 02/18/20 02/19/20 02/19/20 23:59 07:59 15:59 Intake Total 300 1240 Output Total 300 1100 Balance 0 140 Laboratory Tests 02/19/20 05:15 02/19/20 05:15 02/19/20 02/19/20 02/19/20 05:15 05:15 05:15 WBC 19.2 H RBC 3.69 L Hgb 10.8 L Hct 33.5 L MCV 90.8 MCH 29.3 MCHC 32.2 RDW 14.0 Plt Count 297 MPV 11.1 H Sodium 137 Potassium 4.0 Chloride 99 Carbon Dioxide 30 BUN 7 D Creatinine 0.60 L Estim Creat Clear Calc 155 Estimated GFR > 60 Glucose 143 H Calcium 9.3 Iron 57 TIBC 367 % Saturation 16 L Transferrin 251 Ferritin 209.00 H Total Bilirubin 2.5 H AST 112 H ALT 325 H Alkaline Phosphatase 145 H Total Protein 8.0 Albumin 4.3 Post-procedural complaints: none Patient Feedback: Patient satisfied with anesthetic care.
--- NOTE | 2020-02-19 09:38 | WPDGIPROGNO ---
Progress Note: A&P Additional Plan Patient alert this morning. Complains rather significant pain after lap choly. She feels bloated. Difficulty passing flatus. No appetite. Physical exam reveals her to be alert. Vital signs stable. Lungs are clear. Abdomen is obese. Bowel sounds are present. Abdomen is soft. Diffusely tender. No guarding or rebound evident. Labs reveal WBC 19.2, hemoglobin 10.8. Impression abdominal pain status post lap choly. May be related to incisional tenderness. Agree with ultrasound of abdomen to exclude bile leak. Will follow along with you. Subjective Date/time seen: 02/19/20 09:38 Objective Data Vital Signs Vital Signs: Vital Signs - 24 hr 02/18/20 10:31 02/18/20 10:45 02/18/20 11:00 Temperature 36.1 C L Pulse Rate 75 56 L 72 Respiratory Rate 18 12 20 Blood Pressure 124/48 L 117/62 110/50 L Pulse Oximetry 100 98 95 02/18/20 11:15 02/18/20 11:30 02/18/20 11:50 Temperature 36.0 C L Pulse Rate 57 L 58 L 62 Respiratory Rate 14 12 16 Blood Pressure 109/61 100/50 L 112/65 Pulse Oximetry 100 97 100 02/18/20 12:05 02/18/20 12:35 02/18/20 13:35 Temperature 36.0 C L 36.2 C L 36.2 C L Pulse Rate 62 69 89 Respiratory Rate 14 16 16 Blood Pressure 117/72 116/61 128/70 Pulse Oximetry 98 97 98 02/18/20 14:00 02/18/20 21:59 02/19/20 02:00 Temperature 36.2 C L 36.8 C 36.2 C L Pulse Rate 89 72 79 Respiratory Rate 16 16 20 Blood Pressure 128/70 125/70 133/72 Pulse Oximetry 98 99 98 02/19/20 06:00 Temperature 36.1 C L Pulse Rate 82 Respiratory Rate 20 Blood Pressure 139/82 Pulse Oximetry 98 Intake/Output Intake/Output: Intake & Output 02/16/20 02/17/20 02/18/20 02/19/20 23:59 23:59 23:59 23:59 Intake Total 1230 5304 003 4409 Output Total 900 1700 1500 1100 Balance 330 -666 -628 140 Meds/Results Medications: Active Medications Generic Name Dose Route Start Last Admin Trade Name Derrickq PRN Reason Stop Dose Admin Acetaminophen 650 mg 02/18/20 15:10 Tylenol Tablet PO Q4H PRN Pain 1-3 Hydrocodone Bitart/Acetaminophen 1 tab 02/18/20 11:25 02/19/20 06:34 [place] 5-325 Mg PO 1 tab Q4H PRN Administration Pain Rated 4-6 Radiology Results: ITS Impressions Upper Quadrant Ultrasound 02/13/20 16:18 IMPRESSION: Cholelithiasis, moderately distended gallbladder and mildly dilated common bile duct. Can't exclude obstructing choledocholithiasis, although no sonographic Mcintosh's sign was demonstrated. MRCP can be considered if indicated clinically. MRCP 02/14/20 09:10 IMPRESSION: 1. Cholelithiasis and obstructing 5 x 6 mm gallstone at the distal common bile duct with secondary intra and extra hepatic biliary ductal dilation. 2. Incidental pancreas divisum. Pancreas is otherwise normal. Endo Retro Cholangiopancreatogram 02/15/20 15:24 IMPRESSION: Fluoroscopy used during ERCP procedure. Limited fluoroscopic images demonstrate contrast in the common duct. Please refer to procedural report for details. Labs Labs: Laboratory Results - last 24 hr 02/19/20 02/19/20 02/19/20 05:15 05:15 05:15 WBC 19.2 H RBC 3.69 L Hgb 10.8 L Hct 33.5 L MCV 90.8 MCH 29.3 MCHC 32.2 RDW 14.0 Plt Count 297 MPV 11.1 H Sodium 137 Potassium 4.0 Chloride 99 Carbon Dioxide 30 BUN 7 D Creatinine 0.60 L Estim Creat Clear Calc 155 Estimated GFR > 60 Glucose 143 H Calcium 9.3 Iron 57 TIBC 367 % Saturation 16 L Transferrin 251 Ferritin 209.00 H Total Bilirubin 2.5 H AST 112 H ALT 325 H Alkaline Phosphatase 145 H Total Protein 8.0 Albumin 4.3
[2020-02-19 10:40] VITALS: BP 152/88; PULSE 91; RESP 15; TEMP 36.4; O2SAT 98
[2020-02-19] MEDS: SIMETHICONE 125 MG CHEW TAB PO ×3 (12:38→21:26)
--- NOTE | 2020-02-19 12:42 | PM.IMPN ---
Progress Note: A&P Assessment and Plan (1) Cholelithiasis: Qualifiers: Cholelithiasis location: gallbladder and bile duct Cholecystitis presence: without cholecystitis Biliary obstruction: with biliary obstruction Qualified Code(s): K80.71 - Calculus of gallbladder and bile duct without cholecystitis with obstruction Code(s): K80.20 - Calculus of gallbladder without cholecystitis without obstruction Status: Acute Assessment and Plan: MRCP revealed 11mm gallstone in the dependent neck of the gallbladder and a 3mm gallstone at the nondependent funds. There is no gallbladder wall thickening or surrounding pericholecystic inflammatory stranding to suggest acute cholecystitis. She is afebrile. She underwent laparoscopic cholecystectomy on 02/[address] Perez. Today complaining of pain / and unable to pass gas. She was tearful on exam. Begin simethicone Continue analgesics PRN Underwent ultrasound this morning to rule out bile leak which was unremarkable GI and general surgery are following and recommendations are appreciated Given that patient is experiencing more significant pain than what is to be expected, will plan to monitor pain overnight (2) Choledocholithiasis with obstruction: Qualifiers: Cholecystitis presence: without cholecystitis Qualified Code(s): K80.51 - Calculus of bile duct without cholangitis or cholecystitis with obstruction Code(s): K80.51 - Calculus of bile duct without cholangitis or cholecystitis with obstruction Status: Resolved Assessment and Plan: The patient presented with c/o jaundice for 3 days, nausea, intermittent RUQ pain, vomiting, and decreased PO intake. She also reported acholic stools and dark urine. LFTs and bilirubin were elevated. UA revealed bilirubin and urobilinogen. MRCP revealed cholelithiasis and obstructing 5x6mm gallstone at the distal common bile duct which is dilated to 12mm and tapers to 5mm with secondary intra and extra hepatic biliary ductal dilation. GI is on board and the patient underwent ERCP 02/15/[address] Lares with sphincterotomy and one CBD stone was extracted with balloon. There was pancreas divisum present with no other pancreatic abnormalities. Lipase is WNL. Bilirubin is 2.5. Continue to monitor closely for complications (3) Obstructive jaundice: Code(s): K83.1 - Obstruction of bile duct Status: Resolved Assessment and Plan: Resolved s/p ERCP. (4) Hepatitis: Code(s): K75.9 - Inflammatory liver disease, unspecified Status: Acute Assessment and Plan: LFTs are trending down slowly. AST is 112 today. ALT and ALP both with mild increase today at 325 and 145 respectively. The suspected etiology is choledocholithiasis. MRCP revealed intra and extra hepatic biliary ductal dilation. Hepatitis panel was negative. Monoscreen is negative. Continue to monitor LFT Plan for repeat CMP outpatient to ensure resolution. Patient will require follow up with PCP (5) Anemia: Code(s): D64.9 - Anemia, unspecified Status: Acute Assessment and Plan: Hb today is 10.8 and Hct 33.5. She is on her menstrual cycle at this time which may explain anemia. Continue to monitor H&H (6) Leukocytosis: Code(s): D72.829 - Elevated white blood cell count, unspecified Status: Acute Assessment and Plan: WBC today is 19.2. This may be explained by recent surgical procedure and patient received steroids yesterday. Continue to monitor CBC Subjective Date/time seen: 02/19/20 12:42 Interval history: Date of service: 02/19/2020 She is endorsing significant abdominal pain today, mostly related to feeling gas. She endorses epigastric pain rated 7/10 which radiates up to the shoulders and occasionally down towards the periumbilical area. She also complains of abdominal pain with inspiration. She states that she feels she needs to pas
[2020-02-19 14:35] VITALS: BP 149/84; PULSE 93; RESP 15; TEMP 36.6; O2SAT 98
[2020-02-19 16:10] VITALS: BP 95/48; PULSE 71; O2SAT 95
--- NOTE | 2020-02-19 18:00 | PC.NURSE ---
Encouraged Cleopatra all shift to walk in room because she refused to walk in [place].
[2020-02-19 22:00] VITALS: BP 149/89; PULSE 96; RESP 16; TEMP 37.1; O2SAT 98
[2020-02-20 06:00] VITALS: BP 138/80; PULSE 99; RESP 16; TEMP 36.6; O2SAT 97
[2020-02-20 06:21] LABS: Alanine Aminotransferase 267 U/L (4-35); Albumin Level 4.1 g/dL (3.5-5.1); Alkaline Phosphatase 150 U/L (38-126); Aspartate Amino Transferase 81 U/L (14-36); Bilirubin,Total 2.8 mg/dL (0.2-1.3); Blood Urea Nitrogen 8 mg/dL (7-17); Calcium 9.5 mg/dL (8.4-10.2); Carbon Dioxide 29 mmol/L (22-30); Chloride 98 mmol/L (98-107); Estimated CRCL calculation 183 ml/min; Estimated Glomerular Filt Rate > 60; Glucose 111 mg/dL (65-105); Potassium 3.7 mmol/L (3.4-5.0); Sodium 135 mmol/L (137-145)
[2020-02-20 06:38] LABS: Basophils Absolute Auto 0.1 K/mm3 (0.0-0.1); Basophils Percent Auto 0.2 % (0.2-1.2); Eosinophils Absolute Auto 0.1 K/mm3 (0-0.3); Eosinophils Percent Auto 0.6 % (0-4.4); Hematocrit 35.6 % (37.0-47.0); Hemoglobin 11.4 g/dL (12.0-15.0); Immature Granulocyte Absolute 0.14 K/mm3 (0.00-0.031); Immature Granulocyte Percent A 0.7 % (0-0.5); Immature Platelet Fraction Pct 5.9 % (0.9-11.2); Lymphocytes Absolute Auto 3.14 K/mm3 (0.9-3.2); Lymphocytes Percent Auto 15.2 % (18.3-44.2); Mean Corpuscular Hemoglobin 29.4 pg (26-34); Mean Corpuscular Volume 91.8 fl (80-100); Mean Platelet Volume 11.9 fl (7.4-10.4); Monocytes Absolute Auto 1.9 K/mm3 (0.1-0.6); Monocytes Percent Auto 9.3 % (2.6-8.5); Neutrophils Absolute Auto 15.3 K/mm3 (1.3-6.7); Platelet Count Result 308 k/mm3 (150-375); Red Blood Count 3.88 M/mm3 (4.2-5.4); Red Cell Distribution Width 14.4 % (11.5-14.5); White Blood Count 20.7 K/mm3 (4.5-10.0)
[2020-02-20 07:14] LABS: Amylase 52 U/L (30-110); Lipase 15 U/L (23-300)
[2020-02-20] MEDS: SIMETHICONE 125 MG CHEW TAB PO ×3 (08:05→17:39)
--- NOTE | 2020-02-20 10:06 | PM.IMPN ---
Progress Note: A&P Assessment and Plan (1) Cholelithiasis: Qualifiers: Cholelithiasis location: gallbladder and bile duct Cholecystitis presence: without cholecystitis Biliary obstruction: with biliary obstruction Qualified Code(s): K80.71 - Calculus of gallbladder and bile duct without cholecystitis with obstruction Code(s): K80.20 - Calculus of gallbladder without cholecystitis without obstruction Status: Acute Assessment and Plan: MRCP revealed 11mm gallstone in the dependent neck of the gallbladder and a 3mm gallstone at the nondependent funds. There is no gallbladder wall thickening or surrounding pericholecystic inflammatory stranding to suggest acute cholecystitis. She is afebrile. She underwent laparoscopic cholecystectomy on 02/[address] Perez. RUQ ultrasound on 02/18 performed due to ongoing pain was unremarkable. Today complaining of pain 10. Very minimal amount of flatus. Continue simethicone Continue analgesics PRN GI and general surgery are following and recommendations are appreciated Given that patient is experiencing more significant pain than what is to be expected, will plan to monitor overnight (2) Leukocytosis: Code(s): D72.829 - Elevated white blood cell count, unspecified Status: Acute Assessment and Plan: WBC today is 20.1. This may be explained by recent surgical procedure, however given increase in leukocytosis and increased pain, workup is warranted. Will order CT abdomen pelvis with contrast to evaluate for underlying infectious etiology Will obtain UA Continue to monitor CBC (3) Choledocholithiasis with obstruction: Qualifiers: Cholecystitis presence: without cholecystitis Qualified Code(s): K80.51 - Calculus of bile duct without cholangitis or cholecystitis with obstruction Code(s): K80.51 - Calculus of bile duct without cholangitis or cholecystitis with obstruction Status: Resolved Assessment and Plan: The patient presented with c/o jaundice for 3 days, nausea, intermittent RUQ pain, vomiting, and decreased PO intake. She also reported acholic stools and dark urine. LFTs and bilirubin were elevated. UA revealed bilirubin and urobilinogen. MRCP revealed cholelithiasis and obstructing 5x6mm gallstone at the distal common bile duct which is dilated to 12mm and tapers to 5mm with secondary intra and extra hepatic biliary ductal dilation. GI is on board and the patient underwent ERCP 02/15/[address] Fedder with sphincterotomy and one CBD stone was extracted with balloon. There was pancreas divisum present with no other pancreatic abnormalities. Lipase is WNL. Bilirubin is 2.8. Continue to monitor closely for complications (4) Obstructive jaundice: Code(s): K83.1 - Obstruction of bile duct Status: Resolved Assessment and Plan: Resolved s/p ERCP. (5) Hepatitis: Code(s): K75.9 - Inflammatory liver disease, unspecified Status: Acute Assessment and Plan: LFTs are trending down slowly. ALP with mild increase today at 150. The suspected etiology is choledocholithiasis. MRCP revealed intra and extra hepatic biliary ductal dilation. Hepatitis panel was negative. Monoscreen is negative. Continue to monitor LFT Plan for repeat CMP outpatient to ensure resolution. Patient will require follow up with PCP (6) Anemia: Code(s): D64.9 - Anemia, unspecified Status: Acute Assessment and Plan: Hb today is 11.4 and Hct 35.6. Anemia appears to be slowly improving. Continue to monitor H&H Subjective Date/time seen: 02/20/20 10:06 Interval history: Date of service: 02/20/2020 She continues to complain of diffuse abdominal pain today, however she now rates it as a 4/10. She notes that she was able to pass a very small amount of gas which did not provide any relief. She has belched several times. She does endorse nausea, but has not vomited since
--- NOTE | 2020-02-20 10:25 | PM.PNGS ---
Progress Note: A&P Assessment and Plan (1) Leukocytosis: Code(s): D72.829 - Elevated white blood cell count, unspecified Status: Acute Assessment and Plan: Discussed with marisel Mukherjeeist. Amylase and lipase are negative so pancreatitis seems unlikely. Will get CT scan abdomen and pelvis with IV contrast as well as urinalysis with reflux. No fever and eating well. Etiology of leukocytosis is unclear. (2) Chronic cholecystitis due to cholelithiasis with choledocholithiasis: Code(s): K80.64 - Calculus of gallbladder and bile duct with chronic cholecystitis without obstruction Status: Acute Assessment and Plan: Still having more pain than I would expect. Please see evaluations noted above. Ultrasound from yesterday was negative. White blood cell count however is higher. We increased her pain medication yesterday. She is having a little less pain today. Continue evaluation as described above. (3) Obesity: Code(s): E66.9 - Obesity, unspecified Status: Chronic Subjective Subjective Date/Time Seen: 02/20/20 10:25 Post Op day: 2 Patient reports: pain is less (Pain is a little better than yesterday. Still having considerable amount of pain.) and no bowel movement Review of Systems Review of Systems: All systems reviewed & are unremarkable except as noted in HPI and below (HPI) Constitutional: Constitutional: Denies chills and Denies fever(s) Exam GI: Inspection: non-distended and incision (Incisions all healing well) GI Palp: Yes abdominal tenderness (Still more tender than I would expect, diffuse), Yes Soft to palpation, No Guarding due to palpation present (GI) and No Rebound tenderness present Auscultation: Hypoactive bowel sounds present Objective Data Vital Signs Vital Signs: Vital Signs - 24 hr 02/19/20 10:40 02/19/20 14:35 02/19/20 16:10 Temperature 36.4 C 36.6 C Pulse Rate 91 93 71 Respiratory Rate 15 15 Blood Pressure 152/88 H 149/84 H 95/48 L Pulse Oximetry 98 98 95 02/19/20 22:00 02/20/20 06:00 Temperature 37.1 C 36.6 C Pulse Rate 96 99 Respiratory Rate 16 16 Blood Pressure 149/89 H 138/80 Pulse Oximetry 98 97 Intake/Output Intake/Output: Intake & Output 02/17/20 02/18/20 02/19/20 02/20/20 23:59 23:59 23:59 23:59 Intake Total 3436 720 7012 200 Output Total 1700 1500 1100 1200 Balance -160 -765 380 -1000 Meds/Results Medications: Active Medications Generic Name Dose Route Start Last Admin Trade Name Freq PRN Reason Stop Dose Admin Acetaminophen 650 mg 02/18/20 15:10 Tylenol Tablet PO Q4H PRN Pain 1-3 Oxycodone/Acetaminophen 1 tablet 02/19/20 11:44 02/20/20 08:17 Percocet 5-325 Mg PO 1 tablet Q4H PRN Administration Pain Rated 4-6 Oxycodone/Acetaminophen 2 tablet 02/19/20 11:44 Percocet 5-325 Mg PO Q4H PRN Pain Rated 7-10 Simethicone 125 mg 02/19/20 13:00 02/20/20 08:05 Phazyme PO 125 mg QID MATTHEW Administration Radiology Results: ITS Impressions MRCP 02/14/20 09:10 IMPRESSION: 1. Cholelithiasis and obstructing 5 x 6 mm gallstone at the distal common bile duct with secondary intra and extra hepatic biliary ductal dilation. 2. Incidental pancreas divisum. Pancreas is otherwise normal. Endo Retro Cholangiopancreatogram 02/15/20 15:24 IMPRESSION: Fluoroscopy used during ERCP procedure. Limited fluoroscopic images demonstrate contrast in the common duct. Please refer to procedural report for details. Upper Quadrant Ultrasound 02/19/20 09:56 IMPRESSION: 1. Normal right upper quadrant ultrasound status post cholecystectomy. Labs Labs: Laboratory Results - last 24 hr 02/20/20 02/20/20 02/20/20 05:02 05:09 05:09 WBC 20.7 H RBC 3.88 L Hgb 11.4 L Hct 35.6 L MCV 91.8 MCH 29.4 MCHC 32.0 RDW 14.4 Plt Count 308 MPV 11.9 H Immature Gran % (Auto) 0.7 H Neut % (Auto) 74.0 H Lymph %
[2020-02-20 14:00] VITALS: BP 145/84; PULSE 102; RESP 16; TEMP 36.1; O2SAT 98
[2020-02-20 14:46] LABS: Add Urine Microscopic? YES; Amorphous Sediment Urine Few; Appearance Urine Clear (Clear); Bacteria Urine Trace /hpf; Bilirubin Urine Negative (Negative); Blood Urine 3+ (Negative); Color Urine Yellow (Yellow); Glucose Urine UA Negative (Negative); Ketones Urine Negative (Negative); Leukocyte Esterase Ur Negative LEU/UL (Negative); Mucus Urine Rare /lpf; Nitrate Urine Negative (Negative); Protein Urine Negative (Negative); RBC Urine >75 /hpf (0-2); Squamous Epithelial Cell Urine Few /hpf (Few); WBC Urine 0-3 /hpf
--- NOTE | 2020-02-20 15:15 | PC.NURSE ---
patient returning to room from CT scan
--- NOTE | 2020-02-20 19:00 | PC.NURSE ---
patient having a lot of pain this morning. patient encourage to walk. patient refused stating that she is having too much pain and can't at this time. pain pill was given. patient in bed and did not want to get up. in the afternoon, patient feeling better and encouraged to ambulate in the halls. patient walking in room, but refusing to ambulate in the halls. patient still has not passed flatus and is having some pain in right shoulder. d/w patient the importance of walking and how that will help the pain. Patient states that walking makes the pain worse . at shift change, patient again encouraged to ambulate and is refusing at this time
[2020-02-20 22:00] VITALS: BP 124/66; PULSE 100; RESP 16; TEMP 37.2; O2SAT 98
[2020-02-21 06:00] VITALS: BP 135/77; PULSE 85; RESP 16; TEMP 37.1; O2SAT 98
[2020-02-21 06:29] LABS: Basophils Absolute Auto 0.1 K/mm3 (0.0-0.1); Basophils Percent Auto 0.4 % (0.2-1.2); Eosinophils Absolute Auto 0.5 K/mm3 (0-0.3); Eosinophils Percent Auto 2.8 % (0-4.4); Hematocrit 32.3 % (37.0-47.0); Hemoglobin 10.2 g/dL (12.0-15.0); Immature Granulocyte Percent A 0.6 % (0-0.5); Lymphocytes Absolute Auto 3.83 K/mm3 (0.9-3.2); Lymphocytes Percent Auto 23.9 % (18.3-44.2); Mean Corpuscular HGB Conc 31.6 g/dl (32-36); Mean Corpuscular Volume 91.8 fl (80-100); Mean Platelet Volume 10.3 fl (7.4-10.4); Monocytes Absolute Auto 1.8 K/mm3 (0.1-0.6); Neutrophils Absolute Auto 9.8 K/mm3 (1.3-6.7); Neutrophils Percent Auto 61.3 % (45.5-73.1); Platelet Count Result 338 k/mm3 (150-375); Red Blood Count 3.52 M/mm3 (4.2-5.4); Red Cell Distribution Width 14.1 % (11.5-14.5)
--- NOTE | 2020-02-21 06:29 | PM.PNGS ---
Progress Note: A&P Assessment and Plan (1) Leukocytosis: Code(s): D72.829 - Elevated white blood cell count, unspecified Status: Acute Assessment and Plan: Pending white blood cell count today but patient still very uncomfortable in now complaining of right CVA pain. Will go ahead and get hepatobiliary scan this morning. Continue to check for morning lab work as it is not back yet. (2) Chronic cholecystitis due to cholelithiasis with choledocholithiasis: Code(s): K80.64 - Calculus of gallbladder and bile duct with chronic cholecystitis without obstruction Status: Acute Assessment and Plan: Eating and incisions healing well. Still having an excessive amount of abdominal pain on the right side and now in the right CVA. Will go ahead and get HIDA scan. Difficult to assess. Subjective Subjective Date/Time Seen: 02/21/20 06:29 Patient complaining more of right flank pain this morning. No nausea or vomiting. Last dose of analgesics however was before she went to bed last night. Still very uncomfortable. Review of Systems Review of Systems: All systems reviewed & are unremarkable except as noted in HPI and below Constitutional: Constitutional: Denies headache(s) ENT: Denies headache(s) Cardiovascular: Cardiovascular: Denies chest pain and Denies dyspnea Respiratory: Respiratory: Denies cough and Denies dyspnea Gastrointestinal: Gastrointestinal: Reports as per HPI Neurologic: Denies confusion and Denies headache(s) Psychiatric: Psychiatric: Denies confusion Exam Const: General: comfortable and no acute distress; No confusion Orientation/consciousness: patient oriented x3 and No confusion GI: Inspection: non-distended and incision (Incisions continue to heal well) GI Palp: Yes Soft to palpation, Yes Tenderness to palpation present (GI) (Right-sided abdominal tenderness and right CVA tenderness), No Guarding due to palpation present (GI) and No Rebound tenderness present Auscultation: Hypoactive bowel sounds present Neuro: General: patient oriented x3, no focal motor deficits and No confusion Extrem: General: no calf tenderness and no edema Psych: Affect: normal affect Insight: Good insight present (Psych) Judgement: Good judgement present (Psych) Objective Data Vital Signs Vital Signs: Vital Signs - 24 hr 02/20/20 14:00 02/20/20 22:00 02/21/20 06:00 Temperature 36.1 C L 37.2 C 37.1 C Pulse Rate 102 H 100 85 Respiratory Rate 16 16 16 Blood Pressure 145/84 H 124/66 135/77 Pulse Oximetry 98 98 98 Intake/Output Intake/Output: Intake & Output 02/18/20 02/19/20 02/20/20 02/21/20 23:59 23:59 23:59 23:59 Intake Total 735 1480 980 350 Output Total 1500 1100 1700 400 Balance -765 380 -720 -50 Meds/Results Medications: Active Medications Generic Name Dose Route Start Last Admin Trade Name Freq PRN Reason Stop Dose Admin Acetaminophen 650 mg 02/18/20 15:10 Tylenol Tablet PO Q4H PRN Pain 1-3 Oxycodone/Acetaminophen 1 tablet 02/19/20 11:44 02/20/20 21:16 Percocet 5-325 Mg PO 1 tablet Q4H PRN Administration Pain Rated 4-6 Oxycodone/Acetaminophen 2 tablet 02/19/20 11:44 Percocet 5-325 Mg PO Q4H PRN Pain Rated 7-10 Simethicone 125 mg 02/19/20 13:00 02/20/20 21:16 Phazyme PO 125 mg QID MATTHEW Administration Radiology Results: ITS Impressions MRCP 02/14/20 09:10 IMPRESSION: 1. Cholelithiasis and obstructing 5 x 6 mm gallstone at the distal common bile duct with secondary intra and extra hepatic biliary ductal dilation. 2. Incidental pancreas divisum. Pancreas is otherwise normal. Endo Retro Cholangiopancreatogram 02/15/20 15:24 IMPRESSION: Fluoroscopy used during ERCP procedure. Limited fluoroscopic images demonstrate contrast in the common duct. Please refer to procedural report for details. Upper Quadrant Ultrasound 02/19/20 09:56 IMPRESSION: 1. Normal right upper quad
[2020-02-21 06:58] LABS: Alanine Aminotransferase 176 U/L (4-35); Albumin Level 3.8 g/dL (3.5-5.1); Alkaline Phosphatase 142 U/L (38-126); Aspartate Amino Transferase 55 U/L (14-36); Bilirubin,Total 2.4 mg/dL (0.2-1.3); Blood Urea Nitrogen 10 mg/dL (7-17); Calcium 9.2 mg/dL (8.4-10.2); Carbon Dioxide 30 mmol/L (22-30); Chloride 98 mmol/L (98-107); Estimated CRCL calculation 155 ml/min; Estimated Glomerular Filt Rate > 60; Glucose 82 mg/dL (65-105); Potassium 3.6 mmol/L (3.4-5.0); Sodium 135 mmol/L (137-145)
--- NOTE | 2020-02-21 11:15 | WPDGIPROGNO ---
Progress Note: A&P Additional Plan Patient continues to note abdominal pain. No fever described. Physical exam reveals her to be alert and afebrile. On exam she is anicteric. Lungs are clear. Abdomen is soft. Bowel sounds are present she is tender primarily in the right abdomen. Labs reveal WBC 16 K, hemoglobin 10.2, hematocrit 32.3, platelet 330 8 kg normal. Coagulation profile normal. Bilirubin 2.4, AST 55, ALT 126, alk-phos 142, HIDA scan performed today suggest a bile leak. Impression 1. Bile leak. Status post lap choly. Patient had cholelithiasis and choledocholithiasis with prior ERCP for clearance of common bile duct. Plan for ERCP with stent placement most likely this could be accomplished in the morning. Subjective Date/time seen: 02/21/20 11:15 Objective Data Vital Signs Vital Signs: Vital Signs - 24 hr 02/20/20 14:00 02/20/20 22:00 02/21/20 06:00 Temperature 36.1 C L 37.2 C 37.1 C Pulse Rate 102 H 100 85 Respiratory Rate 16 16 16 Blood Pressure 145/84 H 124/66 135/77 Pulse Oximetry 98 98 98 Intake/Output Intake/Output: Intake & Output 02/18/20 02/19/20 02/20/20 02/21/20 23:59 23:59 23:59 23:59 Intake Total 735 1480 980 350 Output Total 1500 1100 1700 400 Balance -765 380 -720 -50 Meds/Results Medications: Active Medications Generic Name Dose Route Start Last Admin Trade Name Freq PRN Reason Stop Dose Admin Acetaminophen 650 mg 02/18/20 15:10 Tylenol Tablet PO Q4H PRN Pain 1-3 Oxycodone/Acetaminophen 1 tablet 02/19/20 11:44 02/21/20 07:00 Percocet 5-325 Mg PO 1 tablet Q4H PRN Administration Pain Rated 4-6 Oxycodone/Acetaminophen 2 tablet 02/19/20 11:44 Percocet 5-325 Mg PO Q4H PRN Pain Rated 7-10 Simethicone 125 mg 02/19/20 13:00 02/20/20 21:16 Phazyme PO 125 mg QID MATTHEW Administration Radiology Results: ITS Impressions MRCP 02/14/20 09:10 IMPRESSION: 1. Cholelithiasis and obstructing 5 x 6 mm gallstone at the distal common bile duct with secondary intra and extra hepatic biliary ductal dilation. 2. Incidental pancreas divisum. Pancreas is otherwise normal. Endo Retro Cholangiopancreatogram 02/15/20 15:24 IMPRESSION: Fluoroscopy used during ERCP procedure. Limited fluoroscopic images demonstrate contrast in the common duct. Please refer to procedural report for details. Upper Quadrant Ultrasound 02/19/20 09:56 IMPRESSION: 1. Normal right upper quadrant ultrasound status post cholecystectomy. Abdomen/Pelvis CT 02/20/20 15:50 IMPRESSION: 1. Postoperative changes from recent cholecystectomy. 2. Small amount of ascites without fluid in the gallbladder fossa. If there is rising bilirubin, clinical suspicion of bile leak, a HIDA scan would be appropriate. 3. Subsegmental right basilar, subsegmental left basilar atelectasis; consider incentive spirometry. Hepatobiliary Scan Nuclear Medicine 02/21/20 10:38 IMPRESSION: 1. Bile leak. Labs Labs: Laboratory Results - last 24 hr 02/20/20 02/21/20 02/21/20 14:27 06:16 06:16 WBC 16.0 H RBC 3.52 L Hgb 10.2 L Hct 32.3 L MCV 91.8 MCH 29.0 MCHC 31.6 L RDW 14.1 Plt Count 338 MPV 10.3 Immature Gran % (Auto) 0.6 H Neut % (Auto) 61.3 Lymph % (Auto) 23.9 [place] % (Auto) 11.0 H Eos % (Auto) 2.8 Baso % (Auto) 0.4 Lymph # (Auto) 3.83 H [place] # (Auto) 1.8 H Eos # (Auto) 0.5 H Baso # (Auto) 0.1 Abs Immat Gran (auto) 0.10 H Absolute Neuts (auto) 9.8 H Absolute Nucleated RBC 0.0 Nucleated RBC % 0.0 Sodium 135 L Potassium 3.6 Chloride 98 Carbon Dioxide 30 BUN 10 Creatinine 0.60 L Estim Creat Clear Calc 155 Estimated GFR > 60 Glucose 82 Calcium 9.2 Total Bilirubin 2.4 H AST 55 H ALT 176 H Alkaline Phosphatase 142 H Total Protein 7.0 Albumin 3.8 Urine Color Yellow Urine Appearance Clear
[2020-02-21 14:00] VITALS: BP 127/84; PULSE 90; RESP 18; TEMP 36.6; O2SAT 96
--- NOTE | 2020-02-21 14:26 | PM.IMPN ---
Progress Note: A&P Assessment and Plan (1) Bile leak, postoperative: Code(s): K91.89 - Other postprocedural complications and disorders of digestive system; K83.8 - Other specified diseases of biliary tract Status: Acute Assessment and Plan: Kaitlynn patient was experiencing pain and leukocytosis postoperatively. Underwent right upper quadrant ultrasound on 02/19/2020 which did not reveal any acute findings. She continued to have pain and leukocytosis. Her total bilirubin had increased following procedure with highest at 2.8. CT abdomen pelvis performed on 02/20/2020 revealed small amount of ascites in the gallbladder fossa. She underwent HIDA scan today which revealed a bile leak. Leukocytosis and hyperbilirubinemia appear to be resolving slowly. GI and general surgery are on board. Patient will undergo ERCP with likely stent placement by Dr. Lares tomorrow. She will be made NPO at midnight. Continue to monitor symptoms. Continue to monitor WBC and will monitor vitals closely. (2) Cholelithiasis: Qualifiers: Cholelithiasis location: gallbladder and bile duct Cholecystitis presence: without cholecystitis Biliary obstruction: with biliary obstruction Qualified Code(s): K80.71 - Calculus of gallbladder and bile duct without cholecystitis with obstruction Code(s): K80.20 - Calculus of gallbladder without cholecystitis without obstruction Status: Acute Assessment and Plan: MRCP revealed 11mm gallstone in the dependent neck of the gallbladder and a 3mm gallstone at the nondependent funds. There is no gallbladder wall thickening or surrounding pericholecystic inflammatory stranding to suggest acute cholecystitis. She is afebrile. She underwent laparoscopic cholecystectomy on 02/[address] Perez. Continues to complain of abdominal pain. She is passing very minimal amount of flatus. Continue simethicone PRN Continue analgesics PRN GI and general surgery are following and recommendations are appreciated (3) Leukocytosis: Code(s): D72.829 - Elevated white blood cell count, unspecified Status: Acute Assessment and Plan: Patient developed leukocytosis after surgery with WBC elevated at 20.7. WBC today is improved to 16.0. Acute increase which occurred may have been related to bile leak. No additional evidence of infection. Patient is afebrile. Continue to monitor CBC (4) Choledocholithiasis with obstruction: Qualifiers: Cholecystitis presence: without cholecystitis Qualified Code(s): K80.51 - Calculus of bile duct without cholangitis or cholecystitis with obstruction Code(s): K80.51 - Calculus of bile duct without cholangitis or cholecystitis with obstruction Status: Resolved Assessment and Plan: The patient presented with c/o jaundice for 3 days, nausea, intermittent RUQ pain, vomiting, and decreased PO intake. She also reported acholic stools and dark urine. LFTs and bilirubin were elevated. UA revealed bilirubin and urobilinogen. MRCP revealed cholelithiasis and obstructing 5x6mm gallstone at the distal common bile duct which is dilated to 12mm and tapers to 5mm with secondary intra and extra hepatic biliary ductal dilation. GI is on board and the patient underwent ERCP 02/15/[address] Lares with sphincterotomy and one CBD stone was extracted with balloon. There was pancreas divisum present with no other pancreatic abnormalities. Lipase is WNL. Bilirubin is 2.8. Continue to monitor (5) Obstructive jaundice: Code(s): K83.1 - Obstruction of bile duct Status: Resolved Assessment and Plan: Resolved s/p ERCP. (6) Hepatitis: Code(s): K75.9 - Inflammatory liver disease, unspecified Status: Acute Assessment and Plan: LFTs are trending down slowly. The suspected etiology is choledocholithiasis. MRCP revealed intra and extra hepatic biliary ductal dilation. Hepatitis panel was negative
[2020-02-21] MEDS: SIMETHICONE 125 MG CHEW TAB PO (21:53)
[2020-02-21 22:00] VITALS: BP 126/76; PULSE 111; RESP 18; TEMP 36.7; O2SAT 95
[2020-02-22] VITALS (10 sets, daily range): BP systolic 101–142; BP diastolic 63–87; PULSE 70–94; RESP 13–18; TEMP 36.3–37.1; O2SAT 95–100
[2020-02-22 06:38] LABS: Basophils Absolute Auto 0.1 K/mm3 (0.0-0.1); Basophils Percent Auto 0.4 % (0.2-1.2); Eosinophils Absolute Auto 0.6 K/mm3 (0-0.3); Eosinophils Percent Auto 4.8 % (0-4.4); Hematocrit 27.6 % (37.0-47.0); Hemoglobin 8.7 g/dL (12.0-15.0); Immature Granulocyte Absolute 0.08 K/mm3 (0.00-0.031); Immature Granulocyte Percent A 0.7 % (0-0.5); Lymphocytes Absolute Auto 3.64 K/mm3 (0.9-3.2); Lymphocytes Percent Auto 32.1 % (18.3-44.2); Mean Corpuscular HGB Conc 31.5 g/dl (32-36); Mean Corpuscular Hemoglobin 28.9 pg (26-34); Mean Corpuscular Volume 91.7 fl (80-100); Mean Platelet Volume 10.7 fl (7.4-10.4); Monocytes Absolute Auto 1.2 K/mm3 (0.1-0.6); Monocytes Percent Auto 10.5 % (2.6-8.5); Neutrophils Absolute Auto 5.8 K/mm3 (1.3-6.7); Neutrophils Percent Auto 51.5 % (45.5-73.1); Platelet Count Result 298 k/mm3 (150-375); Red Blood Count 3.01 M/mm3 (4.2-5.4); Red Cell Distribution Width 13.8 % (11.5-14.5); White Blood Count 11.4 K/mm3 (4.5-10.0)
[2020-02-22 06:56] LABS: Potassium 3.4 mmol/L (3.4-5.0)
[2020-02-22 07:13] LABS: Alanine Aminotransferase 127 U/L (4-35); Albumin Level 3.4 g/dL (3.5-5.1); Alkaline Phosphatase 121 U/L (38-126); Aspartate Amino Transferase 53 U/L (14-36); Bilirubin,Total 1.6 mg/dL (0.2-1.3); Blood Urea Nitrogen 12 mg/dL (7-17); Calcium 8.6 mg/dL (8.4-10.2); Carbon Dioxide 29 mmol/L (22-30); Chloride 101 mmol/L (98-107); Estimated CRCL calculation 155 ml/min; Estimated Glomerular Filt Rate > 60; Glucose 81 mg/dL (65-105); Sodium 137 mmol/L (137-145)
--- NOTE | 2020-02-22 09:15 | WPDANESEPPF ---
Anes - Initial Pre Proc Eval Procedure: Operation Date: 02/15/20 12:00 Proposed Procedures p Endoscopic Retro Cholangiopancreatogram - Horacio Lares MD Operation Date: 02/18/20 09:30 Proposed Procedures p Laparoscopic Cholecystectomy - Ashanti Perez MD Operation Date: 02/22/20 10:30 Proposed Procedures p EGD & Endo Retro Cholangiopancreatogram - Horacio Lares MD Date/Time: 02/22/20 09:15 Surgeon: Yaz Carrasquillo PA-C Pre Op Diagnosis: Jaundice Patient Data Age: 19 Gender: F Height: 5 ft 6 in Weight: 106 kg Last Vital Signs Temp 36.3 C L 02/22/20 06:00 Pulse 70 02/22/20 06:00 Resp 18 02/22/20 06:00 BP 101/75 02/22/20 06:00 Pulse Ox 97 02/22/20 06:00 Allergies Allergy/AdvReac Type Severity Reaction Status Date / Time No Known Allergies Allergy Verified 02/18/20 11:50 Home Medications Medication Instructions Recorded Confirmed Type No Home Medications 02/13/20 02/13/20 History Laboratory Tests 02/22/20 02/22/20 05:56 05:56 WBC 11.4 K/mm3 H K/mm3 (4.5-10.0) RBC 3.01 M/mm3 L M/mm3 (4.2-5.4) Hgb 8.7 g/dL L g/dL (12.0-15.0) Hct 27.6 % L % (37.0-47.0) MCV 91.7 fl fl (80-100) MCH 28.9 pg pg (26-34) MCHC 31.5 g/dl L g/dl (32-36) RDW 13.8 % % (11.5-14.5) Plt Count 298 k/mm3 k/mm3 (150-375) MPV 10.7 fl H fl (7.4-10.4) Immature Gran % (Auto) 0.7 % H % (0-0.5) Neut % (Auto) 51.5 % % (45.5-73.1) Lymph % (Auto) 32.1 % % (18.3-44.2) [place] % (Auto) 10.5 % H % (2.6-8.5) Eos % (Auto) 4.8 % H % (0-4.4) Baso % (Auto) 0.4 % % (0.2-1.2) Lymph # (Auto) 3.64 K/mm3 H K/mm3 (0.9-3.2) [place] # (Auto) 1.2 K/mm3 H K/mm3 (0.1-0.6) Eos # (Auto) 0.6 K/mm3 H K/mm3 (0-0.3) Baso # (Auto) 0.1 K/mm3 K/mm3 (0.0-0.1) Abs Immat Gran (auto) 0.08 K/mm3 H K/mm3 (0.00-0.031) Absolute Neuts (auto) 5.8 K/mm3 K/mm3 (1.3-6.7) Absolute Nucleated RBC 0.0 K/mm3 K/mm3 (0.0-0.012) Nucleated RBC % 0.0 % % (0.0-0.2) Sodium 137 mmol/L mmol/L (137-145) Potassium 3.4 mmol/L mmol/L (3.4-5.0) Chloride 101 mmol/L mmol/L (98-107) Carbon Dioxide 29 mmol/L mmol/L (22-30) BUN 12 mg/dL mg/dL (7-17) Creatinine 0.60 mg/dL L mg/dL (0.7-1.0) Estim Creat Clear Calc 155 ml/min ml/min Estimated GFR > 60 (59 - ) Glucose 81 mg/dL mg/dL (65-105) Calcium 8.6 mg/dL mg/dL (8.4-10.2) Total Bilirubin 1.6 mg/dL H mg/dL (0.2-1.3) AST 53 U/L H U/L (14-36) ALT 127 U/L H U/L (4-35) Alkaline Phosphatase 121 U/L U/L (38-126) Total Protein 6.0 g/dL L g/dL (6.3-8.2) Albumin 3.4 g/dL L g/dL (3.5-5.1) Patient hx anesthesia problems: none Family hx anesthesia problems: none [facility] Past Medical History Medical History Anemia Obesity Surgical History Surgical History No significant past surgical history Family History Family History Mother Diabetes mellitus Father Hypertension Shortness of breath Social History Social History Living arrangements: with family Occupation/Education: unemployed Anes - Eval Final PreProcedure Day of Procedure 02/22/20 09:15 Patient weight: obese Heart: regular rate and rhythm Lungs: clear to auscultation Airway: Mallampati scale class II Neurological: alert and oriented Last oral intake: >/= 8 hours ASA classification: II Emergent: no Anesthetic plan: proceed Anesthesia type and monitoring: general ETT and standard monitoring Informed Consent: The patient's anesthetic plan and its attendant risks and benefits were
[2020-02-22] MEDS: LACTATED RINGERS 1,000 ML 150 ML IV CONT (09:30)
--- NOTE | 2020-02-22 09:36 | SUR.PREOP ---
0936 02/22/20 MOTHER DHRUV CALLED WITH UPDATE OF PATIENT'S PROGRESS WITH PROCEDURE. SPOKE WITH HER VIA PHONE AND DISCUSSED DR. MURILLO CALLING HER WITH UPDATE OF EXAM PER PATIENT'S REQUEST. NO QUESTIONS VOICED PER THE MOM. TOMMIE CHRISTENSEN
--- NOTE | 2020-02-22 13:06 | PM.PNGS ---
Progress Note: A&P Assessment and Plan (1) Bile leak, postoperative: Code(s): K91.89 - Other postprocedural complications and disorders of digestive system; K83.8 - Other specified diseases of biliary tract Status: Acute Assessment and Plan: S/p ERCP with biliary stent placement today. Currently tolerating clear liquids and will be AAT to low fat diet. Pain much improved today. (2) Chronic cholecystitis due to cholelithiasis with choledocholithiasis: Code(s): K80.64 - Calculus of gallbladder and bile duct with chronic cholecystitis without obstruction Status: Acute Assessment and Plan: HIDA showed a bile leak, see above. WBC continues to trend down. Incisions healing well and abdominal pain and tenderness has improved significantly. Continue to ADAT to a low fat diet. Encouraged to increase activity and continue IS. Hopefully, if patient continues to improve, she can be discharged in the next few days. (3) Elevated LFTs: Code(s): R79.89 - Other specified abnormal findings of blood chemistry Status: Acute Assessment and Plan: Continuing to trend down. Additional Plan Discussed plan of care with Dr. Donato. Subjective Subjective Date/Time Seen: 02/22/20 13:06 Post Op day: 4 (lap pierce) Patient reports: no new complaints, feels better, pain is less and tolerating liquids well Interval history: Patient reports feeling better today with less pain. She had an ERCP with biliary stent placement earlier this morning. Reports tolerating clear liquids since then with no nausea or vomiting. No narcotic pain medications since 2300 last night. Rates abdominal pain at a 1/10 near the epigastric incision at this time. Tolerating activity. No other complaints. Review of Systems Review of Systems: All systems reviewed & are unremarkable except as noted in HPI and below Cardiovascular: Cardiovascular: Denies chest pain, Denies edema, Denies leg edema and Denies dyspnea Respiratory: Respiratory: Denies dyspnea and Denies wheezing Gastrointestinal: Gastrointestinal: Reports as per HPI Exam Const: General: comfortable, no acute distress, alert and awake Orientation/consciousness: patient oriented x3 GI: Inspection: non-distended, incision (Abdominal incisions clean/dry/intact, minimal bruising near incisions) and obesity GI Palp: Yes Soft to palpation, Yes Tenderness to palpation present (GI) (right-sided abdominal tenderness, reportedly improved. No CVA tenderness), No Guarding due to palpation present (GI) and No Rebound tenderness present Auscultation: normal bowel sounds Neuro: General: patient oriented x3 and moves all extremities Cranial nerves: Yes CN's II-XII intact bilaterally Speech: normal speech Extrem: General: no calf tenderness and no edema Psych: Mental Status: mental status grossly normal Attitude: cooperative Insight: Good insight present (Psych) Judgement: Good judgement present (Psych) Objective Data Vital Signs Vital Signs: Vital Signs - 24 hr 02/21/20 14:00 02/21/20 22:00 02/22/20 06:00 Temperature 36.6 C 36.7 C 36.3 C L Pulse Rate 90 111 H 70 Respiratory Rate 18 18 18 Blood Pressure 127/84 126/76 101/75 Pulse Oximetry 96 95 97 02/22/20 09:24 02/22/20 10:31 02/22/20 10:41 Temperature 36.7 C 36.6 C Pulse Rate 82 89 85 Respiratory Rate 18 14 18 Blood Pressure 128/72 114/79 127/82 Pulse Oximetry 98 100 96 02/22/20 10:51 02/22/20 11:01 02/22/20 11:11 Temperature Pulse Rate 84 84 85 Respiratory Rate 18 15 13 Blood Pressure 116/69 126/84 126/87 Pulse Oximetry 99 100 95 02/22/20 12:30 Temperature 36.8 C Pulse Rate 84 Respiratory Rate 16 Blood Pressure 117/81 Pulse Oximetry 97 Intake/Output Intake/Output: Intake & Output 02/19/20 02/20/20 02/21/20 02/22/20 23:59 23:59 23:59 23:59 Intake Total 7906 578 2390 50 Output Total 1100 1700 400 200 Balance 380 -720 1220 -150 Meds/Results Medications: Active Medications Gener
--- NOTE | 2020-02-22 13:21 | PM.IMPN ---
Progress Note: A&P Assessment and Plan (1) Bile leak, postoperative: Code(s): K91.89 - Other postprocedural complications and disorders of digestive system; K83.8 - Other specified diseases of biliary tract Status: Acute Assessment and Plan: Kaitlynn patient was experiencing pain and leukocytosis postoperatively. Underwent right upper quadrant ultrasound on 02/19/2020 which did not reveal any acute findings. She continued to have pain and leukocytosis. Her total bilirubin had increased following procedure with highest at 2.8. CT abdomen pelvis performed on 02/20/2020 revealed small amount of ascites in the gallbladder fossa. She underwent HIDA scan 02/20 which revealed a bile leak. Leukocytosis and hyperbilirubinemia are resolving. GI and general surgery are on board. She is s/p ERCP with biliary stent placement performed this morning. She tolerated procedure well. Continue to advance diet as tolerated. Continue to monitor symptoms Hopeful discharge tomorrow (2) Cholelithiasis: Qualifiers: Cholelithiasis location: gallbladder and bile duct Cholecystitis presence: without cholecystitis Biliary obstruction: with biliary obstruction Qualified Code(s): K80.71 - Calculus of gallbladder and bile duct without cholecystitis with obstruction Code(s): K80.20 - Calculus of gallbladder without cholecystitis without obstruction Status: Acute Assessment and Plan: MRCP revealed 11mm gallstone in the dependent neck of the gallbladder and a 3mm gallstone at the nondependent funds. There is no gallbladder wall thickening or surrounding pericholecystic inflammatory stranding to suggest acute cholecystitis. She is afebrile. She underwent laparoscopic cholecystectomy on 02/[address] Perez. Continue simethicone PRN Continue analgesics PRN. GI and general surgery are following and recommendations are appreciated (3) Leukocytosis: Code(s): D72.829 - Elevated white blood cell count, unspecified Status: Acute Assessment and Plan: Patient developed leukocytosis after surgery with WBC elevated at 20.7. WBC today is improved to 11.4. Acute increase which occurred may have been related to bile leak. No additional evidence of infection. Patient is afebrile. Continue to monitor CBC (4) Choledocholithiasis with obstruction: Qualifiers: Cholecystitis presence: without cholecystitis Qualified Code(s): K80.51 - Calculus of bile duct without cholangitis or cholecystitis with obstruction Code(s): K80.51 - Calculus of bile duct without cholangitis or cholecystitis with obstruction Status: Resolved Assessment and Plan: The patient presented with c/o jaundice for 3 days, nausea, intermittent RUQ pain, vomiting, and decreased PO intake. She also reported acholic stools and dark urine. LFTs and bilirubin were elevated. UA revealed bilirubin and urobilinogen. MRCP revealed cholelithiasis and obstructing 5x6mm gallstone at the distal common bile duct which is dilated to 12mm and tapers to 5mm with secondary intra and extra hepatic biliary ductal dilation. GI is on board and the patient underwent ERCP 02/15/[address] Lares with sphincterotomy and one CBD stone was extracted with balloon. There was pancreas divisum present with no other pancreatic abnormalities. Lipase is WNL. Continue to monitor (5) Obstructive jaundice: Code(s): K83.1 - Obstruction of bile duct Status: Resolved Assessment and Plan: Resolved s/p ERCP on 02/15/2020. (6) Hepatitis: Code(s): K75.9 - Inflammatory liver disease, unspecified Status: Acute Assessment and Plan: LFTs are trending down slowly. The suspected etiology is choledocholithiasis. MRCP revealed intra and extra hepatic biliary ductal dilation. Hepatitis panel was negative. Monoscreen is negative. Continue to monitor LFT Plan for repeat CMP outpatient to ensure resolution.
--- NOTE | 2020-02-22 13:26 | PCNWS ---
Weekly nutritional screen. Spoke with patient over telephone due to COVID 19 precautions. Patient started on clear liquid diet today. ERCP with stent placement. She states to no weight loss reported. She is hungry. I will attached low fat diet instructions in patient instructions. No nutritional needs at this time.
[2020-02-23 06:00] VITALS: BP 114/57; PULSE 81; RESP 18; TEMP 36.8; O2SAT 100
[2020-02-23 06:40] LABS: Basophils Percent Auto 0.4 % (0.2-1.2); Eosinophils Absolute Auto 0.2 K/mm3 (0-0.3); Eosinophils Percent Auto 2.2 % (0-4.4); Hematocrit 27.1 % (37.0-47.0); Hemoglobin 8.7 g/dL (12.0-15.0); Immature Granulocyte Absolute 0.07 K/mm3 (0.00-0.031); Immature Granulocyte Percent A 0.7 % (0-0.5); Immature Platelet Fraction Pct 5.9 % (0.9-11.2); Lymphocytes Absolute Auto 3.12 K/mm3 (0.9-3.2); Lymphocytes Percent Auto 29.3 % (18.3-44.2); Mean Corpuscular HGB Conc 32.1 g/dl (32-36); Mean Corpuscular Volume 90.3 fl (80-100); Mean Platelet Volume 11.6 fl (7.4-10.4); Monocytes Absolute Auto 0.9 K/mm3 (0.1-0.6); Monocytes Percent Auto 8.4 % (2.6-8.5); Neutrophils Absolute Auto 6.3 K/mm3 (1.3-6.7); Platelet Count Result 239 k/mm3 (150-375); Red Cell Distribution Width 13.6 % (11.5-14.5); White Blood Count 10.7 K/mm3 (4.5-10.0)
[2020-02-23 09:13] LABS: Alanine Aminotransferase 131 U/L (4-35); Albumin Level 3.9 g/dL (3.5-5.1); Alkaline Phosphatase 138 U/L (38-126); Aspartate Amino Transferase 61 U/L (14-36); Bilirubin,Total 1.7 mg/dL (0.2-1.3); Blood Urea Nitrogen 9 mg/dL (7-17); Calcium 9.3 mg/dL (8.4-10.2); Carbon Dioxide 27 mmol/L (22-30); Chloride 103 mmol/L (98-107); Estimated CRCL calculation 135 ml/min; Estimated Glomerular Filt Rate > 60; Glucose 80 mg/dL (65-105); Potassium 3.7 mmol/L (3.4-5.0); Sodium 139 mmol/L (137-145)
--- NOTE | 2020-02-23 09:25 | PM.PNGS ---
Progress Note: A&P Assessment and Plan (1) Chronic cholecystitis due to cholelithiasis with choledocholithiasis: Code(s): K80.64 - Calculus of gallbladder and bile duct with chronic cholecystitis without obstruction Status: Acute Assessment and Plan: healing well. Okay for discharge from surgery standpoint. Instructions were given. I will send her home with a script for Percocet. (2) Bile leak, postoperative: Code(s): K91.89 - Other postprocedural complications and disorders of digestive system; K83.8 - Other specified diseases of biliary tract Status: Acute Assessment and Plan: Controlled with stent placed yesterday by Dr. Lares. Looks great today. Okay for discharge from our standpoint. Subjective Subjective Date/Time Seen: 02/23/20 09:25 Post Op day: 6 Patient reports: no new complaints, feels better, pain is less and tolerating a regular diet Interval history: feels much better. Smiling. No complaints. Exam GI: Inspection: non-distended and incision ( Laparoscopic incisions all healing well) GI Palp: Yes Soft to palpation and Yes Tenderness to palpation present (GI) ( minimal appropriate tenderness) Auscultation: normal bowel sounds Objective Data Vital Signs Vital Signs: Vital Signs - 24 hr 02/22/20 10:31 02/22/20 10:41 02/22/20 10:51 Temperature 36.6 C Pulse Rate 89 85 84 Respiratory Rate 14 18 18 Blood Pressure 114/79 127/82 116/69 Pulse Oximetry 100 96 99 02/22/20 11:01 02/22/20 11:11 02/22/20 12:30 Temperature 36.8 C Pulse Rate 84 85 84 Respiratory Rate 15 13 16 Blood Pressure 126/84 126/87 117/81 Pulse Oximetry 100 95 97 02/22/20 14:00 02/22/20 22:00 02/23/20 06:00 Temperature 36.8 C 37.1 C 36.8 C Pulse Rate 83 94 81 Respiratory Rate 16 18 18 Blood Pressure 115/80 142/63 H 114/57 L Pulse Oximetry 99 98 100 Intake/Output Intake/Output: Intake & Output 02/20/20 02/21/20 02/22/20 02/23/20 23:59 23:59 23:59 23:59 Intake Total 980 1620 1080 500 Output Total 1700 400 950 Balance -720 1220 130 500 Meds/Results Medications: Active Medications Generic Name Dose Route Start Last Admin Trade Name Freq PRN Reason Stop Dose Admin Acetaminophen 650 mg 02/18/20 15:10 Tylenol Tablet PO Q4H PRN Pain 1-3 Oxycodone/Acetaminophen 1 tablet 02/19/20 11:44 02/21/20 23:30 Percocet 5-325 Mg PO 1 tablet Q4H PRN Administration Pain Rated 4-6 Oxycodone/Acetaminophen 2 tablet 02/19/20 11:44 Percocet 5-325 Mg PO Q4H PRN Pain Rated 7-10 Simethicone 125 mg 02/19/20 13:00 02/23/20 04:15 Phazyme PO Not Given QID [facility] Radiology Results: ITS Impressions MRCP 02/14/20 09:10 IMPRESSION: 1. Cholelithiasis and obstructing 5 x 6 mm gallstone at the distal common bile duct with secondary intra and extra hepatic biliary ductal dilation. 2. Incidental pancreas divisum. Pancreas is otherwise normal. Upper Quadrant Ultrasound 02/19/20 09:56 IMPRESSION: 1. Normal right upper quadrant ultrasound status post cholecystectomy. Abdomen/Pelvis CT 02/20/20 15:50 IMPRESSION: 1. Postoperative changes from recent cholecystectomy. 2. Small amount of ascites without fluid in the gallbladder fossa. If there is rising bilirubin, clinical suspicion of bile leak, a HIDA scan would be appropriate. 3. Subsegmental right basilar, subsegmental left basilar atelectasis; consider incentive spirometry. Hepatobiliary Scan Nuclear Medicine 02/21/20 10:38 IMPRESSION: 1. Bile leak. Endo Retro Cholangiopancreatogram 02/22/20 20:32 IMPRESSION: 1. Common bile duct stent insertion. Please refer to the ERCP procedure note for additional details. Labs Labs: Laboratory Results - last 24 hr 02/23/20 02/23/20 05:57 08:38 WBC 10.7 H RBC 3.00 L Hgb 8.7 L Hct 27.1 L MCV 90.3 MCH 29.0 MCHC 32.1 RDW 13.6 Plt Count 239 MPV 11.6 H Immature G
--- NOTE | 2020-02-23 12:21 | PM.DS ---
DS: Diagnosis Admitting Diagnosis Admitting Diagnosis: Obstructive jaundice Discharge Diagnosis (1) Bile leak, postoperative: Code(s): K91.89 - Other postprocedural complications and disorders of digestive system; K83.8 - Other specified diseases of biliary tract Status: Acute Assessment and Plan: Underwent HIDA scan 02/20 which revealed a bile leak. She is s/p ERCP with biliary stent placement performed 02/22/20. She will follow up with Dr. Lares in 4 weeks for stent removal. (2) Cholelithiasis: Qualifiers: Biliary obstruction: with biliary obstruction Cholecystitis presence: without cholecystitis Cholelithiasis location: gallbladder and bile duct Qualified Code(s): K80.71 - Calculus of gallbladder and bile duct without cholecystitis with obstruction Code(s): K80.20 - Calculus of gallbladder without cholecystitis without obstruction Status: Acute Assessment and Plan: She underwent laparoscopic cholecystectomy on 02/[address] Perez. She will follow up wih Dr. Perez in 2 weeks or sooner for any concerns. . (3) Leukocytosis: Code(s): D72.829 - Elevated white blood cell count, unspecified Status: Acute Assessment and Plan: Patient developed leukocytosis after cholecystectomy which was likely related to bile leak. She remained afebrile and leukocytosis resolved to 10.7 at time of discharge. Repeat CBC in one week outpatient. (4) Choledocholithiasis with obstruction: Qualifiers: Cholecystitis presence: without cholecystitis Qualified Code(s): K80.51 - Calculus of bile duct without cholangitis or cholecystitis with obstruction Code(s): K80.51 - Calculus of bile duct without cholangitis or cholecystitis with obstruction Status: Resolved Assessment and Plan: Underwent ERCP 02/15/[address] Lares with sphincterotomy and one CBD stone was extracted with balloon. She will follow up with Dr. Lares in 4 weeks or sooner for any concerns. (5) Obstructive jaundice: Code(s): K83.1 - Obstruction of bile duct Status: Resolved Assessment and Plan: Resolved s/p ERCP on 02/15/2020. Total bilirubin 1.7 at time of discharge. (6) Hepatitis: Code(s): K75.9 - Inflammatory liver disease, unspecified Status: Acute Assessment and Plan: LFTs elevated, likely due to choledocholithiasis. MRCP revealed intra and extra hepatic biliary ductal dilation. Hepatitis panel and monoscreen negative. LFTs improved. Repeat CMP in one week outpatient. (7) Anemia: Code(s): D64.9 - Anemia, unspecified Status: Acute Assessment and Plan: Hgb ranged from 15.1-8.7 and Hct 47.2-27.1. Patient was menstruating during her stay and reports heavy, irregular menses. She remained asymptomatic. Repeat CBC in one week outpatient. DS: Summary Hospital Course Reason for hospitalization: Jaundice Hospital Course: Date of admission: 02/13/2020 Date of discharge: 02/23/2020 Cleopatra Acosta is a 19 yo female with a PMH significant for anemia and obesity who presented to the emergency department on 02/13/20 with complaints of jaundice for 3 days, nausea, intermittent RUQ pain, vomiting, and decreased PO intake. She also reported acholic stools and dark urine. At presentation, WBC 8.8, Hgb 15.1, Hct 47.2, plt 368, Na 139, K 3.3, Cl 99, CO2 30, BUN 9, Cr 0.8, Gluc 131, total bili 9.6, direct bili 4.4, AST 336, ALT 695, ALP 254, Heptatitis panel negative, and RUQ US revealing cholelithiasis, moderately distended GB and mildly dilated common bile duct. She was admitted to the hospitalist service on 02/13/20 and was seen in consultation by gastroenterology. She underwent MRCP on 02/13 which revealed obstructing stone in distal CBD. She underwent ERCP on 02/15/20 for stone extraction. General surgery was consulted and she underwent laparoscopic cholecystectomy on 02/18/20. Following procedure, she developed abdominal discomfort in her epigas
== END 2020-02-23 15:25 | disposition home or self-care (01) | DRG 263 ==
LOC: ANHED 18:04 → ANH3MEDSUR 02-14 06:46
PROVIDERS: Internal Medicine; Internal Medicine Gastroenterology; Physician Assistant; Surgery; Admitting Provider Internal Medicine; Emergency Provider Emergency Medicine; Visit Provider Family Medicine
PROC: 0FC98ZZ Extirpation of Matter from Common Bile Duct, Via Natural or Artificial Opening Endoscopic (ICD-10-PCS; CPT 43260; principal; 2020-02-15 12:00)
PROC: 0FT44ZZ Resection of Gallbladder, Percutaneous Endoscopic Approach (ICD-10-PCS; CPT 47562; principal; 2020-02-18 09:30)
PROC: 0DJ08ZZ Inspection of Upper Intestinal Tract, Via Natural or Artificial Opening Endoscopic (ICD-10-PCS; CPT 43235; principal; 2020-02-22 10:30)
DX: K80.63 Calculus of gallbladder and bile duct with acute cholecystitis with obstruction (principal); K91.89 Other postprocedural complications and disorders of digestive system; K83.8 Other specified diseases of biliary tract; D72.829 Elevated white blood cell count, unspecified; K31.9 Disease of stomach and duodenum, unspecified; K75.9 Inflammatory liver disease, unspecified; R17 Unspecified jaundice; D64.9 Anemia, unspecified; E66.9 Obesity, unspecified; Z68.37 Body mass index [BMI] 37.0-37.9, adult
CPT/HCPCS: 36415; 74177; 74183; 74329; 76376; 76705; 78226; 80048; 80053; 80074; 80076; 81001; 81025; 82140; 82150; 82728; 83540; 83550; 83690; 84466; 85025; 85027; 85055; 85610; 85730; 86308; 88304; 99285; A9270; A9537; A9577; C1713; C1876; J0330; J0690; J1100; J2250; J2370; J2405; J2704; J2710; J3010; J7030; J7120; Q9967

== ENCOUNTER 2020-02-29 15:28 | Outpatient (CLI) | payer MEDICAID, SELFPAY ==
[2020-02-29 16:01] LABS: Hematocrit 34.8 % (37.0-47.0); Mean Corpuscular HGB Conc 31.6 g/dl (32-36); Mean Corpuscular Hemoglobin 28.8 pg (26-34); Mean Corpuscular Volume 91.1 fl (80-100); Mean Platelet Volume 9.6 fl (7.4-10.4); Platelet Count Result 535 k/mm3 (150-375); Red Blood Count 3.82 M/mm3 (4.2-5.4); Red Cell Distribution Width 13.3 % (11.5-14.5); White Blood Count 8.4 K/mm3 (4.5-10.0)
[2020-02-29 16:21] LABS: Alanine Aminotransferase 65 U/L (4-35); Albumin Level 4.4 g/dL (3.5-5.1); Alkaline Phosphatase 108 U/L (38-126); Aspartate Amino Transferase 34 U/L (14-36); Bilirubin,Total 1.2 mg/dL (0.2-1.3); Blood Urea Nitrogen 11 mg/dL (7-17); Calcium 9.7 mg/dL (8.4-10.2); Carbon Dioxide 31 mmol/L (22-30); Chloride 102 mmol/L (98-107); Estimated Glomerular Filt Rate > 60; Glucose 91 mg/dL (65-105); Potassium 3.5 mmol/L (3.4-5.0); Sodium 139 mmol/L (137-145)
== END 2020-02-29 15:29 | disposition home or self-care (01) ==
PROVIDERS: Visit Provider Physician Assistant
DX: K75.9 Inflammatory liver disease, unspecified (principal); K80.51 Calculus of bile duct without cholangitis or cholecystitis with obstruction
CPT/HCPCS: 36415; 80053; 85027

== ENCOUNTER 2020-03-26 00:18 | Outpatient (CLI) | payer OTHER, SELFPAY ==
[2020-03-26 18:10] LABS: SARS-CoV-2 RNA PCR Negative
== END 2020-03-26 00:19 | disposition home or self-care (01) ==
LOC: ANHCOVIDDT 00:18
PROVIDERS: Visit Provider Internal Medicine Gastroenterology
DX: Z20.828 Contact with and (suspected) exposure to other viral communicable diseases (principal); Z01.812 Encounter for preprocedural laboratory examination
CPT/HCPCS: 87635; C9803; U0003

== ENCOUNTER 2020-03-28 02:41 | Day surgery (SDC) | payer OTHER, SELFPAY ==
[2020-03-20 14:45] VITALS: BMI 39.1
[2020-03-28 07:10] VITALS: BP 116/57; PULSE 76; RESP 18; TEMP 36.7; O2SAT 99
--- NOTE | 2020-03-28 07:19 | P.PNAN_ITS ---
Anes - Initial Pre Proc Eval Procedure: Operation Date: 03/28/20 08:00 Proposed Procedures p Esophagogastroduodenoscopy with Stent Removal - Horacio Lares MD Date/Time: 03/28/20 07:19 Surgeon: Horacio Lares MD Pre Op Diagnosis: biliary leak Patient Data Age: 19 Gender: F Height: 1.68 m Weight: 112.6 kg Last Vital Signs Temp 36.7 C 03/28/20 07:10 Pulse 76 03/28/20 07:10 Resp 76 H 03/28/20 07:10 BP 116/57 L 03/28/20 07:10 Pulse Ox 99 03/28/20 07:10 Allergies Allergy/AdvReac Type Severity Reaction Status Date / Time banana Allergy Mild Unknown Verified 03/20/20 14:37 Home Medications Medication Instructions Recorded Confirmed Type No Home Medications 02/13/20 03/20/20 History Patient hx anesthesia problems: none Family hx anesthesia problems: none [facility] Past Medical History Medical History (Updated 03/28/20 @ 07:15 by Galen Wolf DO) Anemia Morbid obesity Surgical History Surgical History History of laparoscopic cholecystectomy 02/18/20 No significant past surgical history Social History Social History Social History: Code code status: Full code Smoking status: Never smoker Alcohol intake: never Substance use: never Substance use type: does not use Additional living arrangements comments: She is single. She lives at home with her mom and dad. She was home schooled. Additional occupation/education comments: She is unemployed and does not go to school. Gender identity (if verbalized by the patient): Female Spiritual care concerns: No Agree to blood products: Yes Anes - Eval Final PreProcedure Day of Procedure 03/28/20 07:19 Patient weight: morbidly obese Heart: regular rate and rhythm Lungs: clear to auscultation and normal air movement Airway: Mallampati scale class 1 Neurological: alert and oriented Last oral intake: >/= 8 hours ASA classification: III Emergent: no Anesthetic plan: proceed Anesthesia type and monitoring: general GIVS and standard monitoring Informed Consent: The patient's anesthetic plan and its attendant risks and benefits were discussed with the patient/family/POA. Questions were solicited and answers provided to the satisfaction of the patient/family/POA.
[2020-03-28] MEDS: LACTATED RINGERS 1,000 ML 150 ML IV CONT (07:35)
--- NOTE | 2020-03-28 08:02 | WPDGICN ---
Assessment and Plan Assessment and plan (1) Bile leak, postoperative: Code(s): K91.89 - Other postprocedural complications and disorders of digestive system; K83.8 - Other specified diseases of biliary tract Status: Resolved Assessment and Plan: Patient has done well with a history of a postoperative bile leak. Biliary stent seemed to improve this quite dramatically. Patient presents today for removal of biliary stent. EGD and stent removal will be performed today. (2) History of biliary stent insertion: Code(s): Z98.890 - Other specified postprocedural states Status: Acute (3) History of laparoscopic cholecystectomy: Code(s): Z90.49 - Acquired absence of other specified parts of digestive tract Status: Acute GI Consult Note Consult date/time: 03/28/20 08:02 HPI: Cleopatra Castaneda is a 19 year old female Seen in evaluation at the request of Alfonso Munguia MD. Patient presents today for biliary stent removal. Patient's history is significant for cholecystectomy 1 month ago. Postoperatively she had a bile leak. She had significant abdominal pain relieved with placement of biliary stent. Patient has done well subsequently. Her current weight appetite bowel movements are normal. She denies any ongoing abdominal pain. Today she presents for removal of biliary stent. Review of Systems Review of Systems: All systems reviewed & are unremarkable except as noted in HPI and below PMFSH Past Medical History Medical History Anemia Morbid obesity Surgical History Surgical History History of laparoscopic cholecystectomy 02/18/20 No significant past surgical history Family History Family History Mother Diabetes mellitus Father Hypertension Shortness of breath Social History Social History Social History: Code code status: Full code Smoking status: Never smoker Alcohol intake: never Substance use: never Substance use type: does not use Additional living arrangements comments: She is single. She lives at home with her mom and dad. She was home schooled. Additional occupation/education comments: She is unemployed and does not go to school. Gender identity (if verbalized by the patient): Female Spiritual care concerns: No Agree to blood products: Yes Meds Home Medications and Allergies Home Medications Medication Instructions Recorded Confirmed Type No Home Medications 02/13/20 03/20/20 History Allergies Allergy/AdvReac Type Severity Reaction Status Date / Time banana Allergy Mild Unknown Verified 03/20/20 14:37 Vital Signs Vital Signs - 24 hr 03/28/20 07:10 Temperature 36.7 C Pulse Rate 76 Respiratory Rate 76 H Blood Pressure 116/57 L Pulse Oximetry 99 Exam Narrative: Exam Narrative: Physical exam reveals patient to be alert. Vital signs stable. HEENT exam unremarkable. She is anicteric. Lungs are clear to auscultation and percussion. Heart is without murmur or extra sounds. Abdominal exam bowel sounds are present soft nontender with no hepatosplenomegaly. Rectal exam is deferred today.
[2020-03-28] MEDS: BENZOCAINE (*SP) 60 ML SPRAY CAN (HURRICAINE) 1 SPRAY MUCOUS MEM (08:18)
[2020-03-28 08:27] VITALS: BP 125/62; PULSE 85; RESP 20; O2SAT 98
[2020-03-28 08:37] VITALS: BP 134/61; PULSE 76; RESP 22; O2SAT 100
[2020-03-28 08:47] VITALS: BP 132/60; PULSE 73; RESP 21; O2SAT 100
== END 2020-03-28 09:10 | disposition home or self-care (01) ==
PROVIDERS: PCP Family Medicine; Visit Provider Internal Medicine Gastroenterology
PROC: 0DP08DZ Removal of Intraluminal Device from Upper Intestinal Tract, Via Natural or Artificial Opening Endoscopic (ICD-10-PCS; CPT 43247; principal; 2020-03-28 08:00)
DX: Z46.59 Encounter for fitting and adjustment of other gastrointestinal appliance and device (principal); Z87.19 Personal history of other diseases of the digestive system; E66.01 Morbid (severe) obesity due to excess calories; Z68.41 Body mass index [BMI] 40.0-44.9, adult
CPT/HCPCS: 43247; J2704; J7120